=== PATIENT | female | born 1955 ===

== ENCOUNTER 2018-06-13 00:10 | Emergency (ER) | payer SELFPAY ==
[2018-06-13 00:24] VITALS: TEMP 98.7
--- NOTE | 2018-06-13 01:00 | C.PDOC ---
History Of Present Illness Patient with PMH of HTN presents to ED with complaints of HTN and headcache since this afternoon. The patient states she has been compliant with her medications and there was a recent addition of new medication hydralazine which she started taking today. Patient states she checked her blood pressure which was high 190s. Patient took a pain reliever for her headache which helped and on arrival to ED she feels better. She denies any dizziness, nausea, vomiting, numbness, weakness, chest pain or SOB. Time Seen by Provider: 06/13/18 00:46 Chief Complaint (Nursing): High Blood Pressure History Per: Patient History/Exam Limitations: no limitations Onset/Duration Of Symptoms: Hrs Current Symptoms Are (Timing): Still Present Past Medical History Reviewed: Historical Data, Nursing Documentation, Vital Signs Vital Signs: Last Vital Signs Temp 98.7 F 06/13/18 01:22 Pulse 66 06/13/18 01:22 Resp 16 06/13/18 01:22 BP 151/76 H 06/13/18 01:22 Pulse Ox 98 06/13/18 01:41 - Medical History PMH: HTN Family History: States: No Known Family Hx - Social History Hx Tobacco Use: Yes (former) Hx Alcohol Use: No Hx Substance Use: No Review Of Systems Except As Marked, All Systems Reviewed And Found Negative. Cardiovascular: Negative for: Chest Pain Respiratory: Negative for: Shortness of Breath Gastrointestinal: Negative for: Nausea, Vomiting Neurological: Positive for: Headache. Negative for: Weakness, Dizziness Physical Exam - Physical Exam Appears: Well, Non-toxic, No Acute Distress Skin: Warm, Dry, No Rash Head: Atraumatic, Normacephalic Eye(s): bilateral: Normal Inspection Oral Mucosa: Moist Neck: Normal ROM Chest: Symmetrical Cardiovascular: Rhythm Regular, No Murmur Respiratory: Normal Breath Sounds, No Rales, No Rhonchi, No Wheezing Extremity: Bilateral: Atraumatic, Normal Color And Temperature, Normal ROM Neurological/Psych: Oriented x3, Normal Speech, Normal Cranial Nerves, Other ( No focal deficits) Gait: Steady ED Course And Treatment O2 Sat by Pulse Oximetry: 98 (RA) Pulse Ox Interpretation: Normal Medical Decision Making Medical Decision Making: Impression: HTN, recent medication change Patient appears well nontoxic and in no distress. She has no neuro deficits and her BP was 162/80 which is close to her normal she states. Patient has no other complaints. No clinical signs or symptoms of TIA, CVA, SAH. She feels comfortable going home and will be discharged. Disposition Counseled Patient/Family Regarding: Diagnosis, Need For Followup - Disposition Referrals: [facility] [Outside] [facility] [Outside] Disposition: HOME/ ROUTINE Disposition Time: 00:59 Condition: STABLE Additional Instructions: Contine con stacey medicamentos habituales para la hipertensin prueba la dieta baja en sodio seguimiento en la clnica Instructions: High Blood Pressure (DC) Print Language: MALTESE - POA Present On Arrival: None - Clinical Impression Clinical Impression: Hypertension - PA / PLATINUM SMITH / Resident Statement /DO has reviewed & agrees with the documentation as recorded.
[2018-06-13 01:26] VITALS: BP 151/76; PULSE 66; RESP 16
[2018-06-13 01:41] VITALS: O2SAT 98
== END 2018-06-13 01:24 | disposition home or self-care (01) ==
LOC: C.ER 00:10
DX: I10 Essential (primary) hypertension (principal)

== ENCOUNTER 2018-11-14 11:17 | Inpatient (IN) | payer OTHER ==
[2018-11-14] MEDS ORDERED: Sodium Chloride 0.9% 1,000 ML IV STA (12:21)
--- NOTE | 2018-11-14 12:21 | C.PDOC ---
History Of Present Illness 63 years old female presents to ED for complaints of coughing blood streaks associated with nausea and generalized weakness that began 3 days ago. Patient also reports she was recently diagnosed with kidney infection and has been ta marleen Zithromax and Keflex for the past 10 days with no improvement. Patient states she came from [place] on the 11/16/18. Denies diarrhea, vomiting, dysuria, or any other complaints. Time Seen by Provider: 11/14/18 11:39 Chief Complaint (Nursing): Flu-like Symptoms History Per: Patient History/Exam Limitations: no limitations Onset/Duration Of Symptoms: Hrs Current Symptoms Are (Timing): Still Present Recent travel outside of the [place]: No Past Medical History Reviewed: Historical Data, Nursing Documentation, Vital Signs Vital Signs: Last Vital Signs Temp 99 F 11/14/18 11:30 Pulse 96 H 11/14/18 11:30 Resp 18 11/14/18 11:30 BP 139/84 11/14/18 11:30 Pulse Ox 96 11/14/18 11:30 - Medical History PMH: HTN Surgical History: No Surg Hx Family History: States: No Known Family Hx - Social History Hx Tobacco Use: Yes (former) Hx Alcohol Use: No Hx Substance Use: No - Immunization History Hx Tetanus Toxoid Vaccination: No Hx Influenza Vaccination: No Hx Pneumococcal Vaccination: No Review Of Systems Constitutional: Positive for: Weakness. Negative for: Fever, Chills Respiratory: Positive for: Cough (w/ blood streaks ) Gastrointestinal: Positive for: Nausea. Negative for: Vomiting, Abdominal Pain, Diarrhea Genitourinary: Negative for: Dysuria Skin: Negative for: Rash Neurological: Negative for: Weakness, Numbness Physical Exam - Physical Exam Appears: Well, Non-toxic, No Acute Distress Skin: Normal Color, Warm, Dry, No Rash Head: Atraumatic, Normacephalic Eye(s): bilateral: Normal Inspection, PERRL, EOMI Oral Mucosa: Moist Chest: Symmetrical, No Tenderness Cardiovascular: Rhythm Regular, No Murmur Respiratory: Normal Breath Sounds, No Rales, No Rhonchi, No Wheezing Gastrointestinal/Abdominal: Bowel Sounds (Active ), Soft, No Tenderness Extremity: Normal ROM Extremity: Bilateral: Atraumatic, Normal Color And Temperature, Normal ROM Pulses: Left Radial: Normal, Right Radial: Normal Neurological/Psych: Oriented x3, Normal Speech Gait: Steady ED Course And Treatment - Laboratory Results Result Diagrams: 11/14/18 12:40 11/14/18 12:40 O2 Sat by Pulse Oximetry: 96 (RA) Pulse Ox Interpretation: Normal - Other Rad CXR X-Ray: Viewed By Me, Read By Radiologist Interpretation: Date of service: 11/14/2018. HISTORY: productive cough with blood. COMPARISON: No prior. TECHNIQUE: Chest PA and lateral. FINDINGS: LUNGS: Patchy infiltrate is seen at the right upper lobe and possibly minimally in the right infrahilar space as well. Left lung appears clear. PLEURA: No significant pleural effusion identified. No pneumothorax apparent. CARDIOVASCUL AR: No aortic atherosclerotic calcification present. Normal cardiac size. No pulmonary vascular congestion. OSSEOUS STRUCTURES: No significant abnormalities. VISUALIZED UPPER ABDOMEN: Normal. OTHER FINDINGS: None. IMPRESSION: Patchy infiltrate affects right upper lobe and possibly right in frahilar space as well. No left sided infiltrate. No pleural effusion bilaterally. - CT Scan/US CT chest Other Rad Studies (CT/US): Read By Radiologist, Radiology Report Reviewed CT/US Interpretation: Accession No. : [id number]. Patient Name / ID : BOB LAMAR / [id number]. Exam Date : 11/14/2018 14:45:29 ( Approved ). Study Comment : Sex / Age : F / 63Y. Creator : Lencho Staton. Dictator : Dwayne Lebron MD. Boiler Plant Worker : [place] : Dwayne Lebron MD. Approver2 : Report Date : 11/14/2018 14:53:33. My Comment : . This report is currently processing and HAS NOT BEEN OFFICIALLY SIGNED BY THE PHYSICIAN - ESTIMATED TIME OF APPROVAL IS 11/14/2018 16:34. Date of service: 11/14/2018. PROCEDURE: CT Chest without contrast. HISTORY: cough, hemoptysis. COMPARISON: Chest radiographs 11/14/2018. TECHNIQUE: Contiguous axial images were obtained through the chest without intravenous contrast enhancement. Sagittal and coronal reconstructions were performed. . Radiation dose: Total exam DLP = 750.95 mGy-cm. This CT exam was performed using one or more of the following dose reduction techniques: Automated exposure control, adjustment of the mA and/or kV according to patient size, and/or use of iterative reconstruction technique. FINDINGS: LUNGS: Multifocal infiltrates with somewhat lobular sub components are identified primarily at the right upper lobe but affect the left lower lobe followed by right lower lobe and left upper lobe as well. Central airways are clear. MEDIASTINUM: Calcific atherosclerotic changes are seen related to the thoracic aorta. Normal sized heart. Limited coronary artery calcifications are identified. Main pulmonary artery is dilated to 3.6 cm which may indicate pulmonary artery hypertension. Clinically correlate. Mildly enlarged preaortic and paratracheal lymph nodes are identified with the largest lymph node identified in the precarinal space measuring 2.0 x 1.0 cm. PLEURA: No pleural fluid. No pneumothorax. BONES: No fracture. No destructive lesion. UPPER ABDOMEN: Grossly unremarkable. OTHER FINDINGS: None. IMPRESSION: 1. Multifocal bilateral pneumonia is appreciated with somewhat of a nodular underlying component with right upper and left lower lobes most affected as described above. The right middle lobe may be the only unaffected lobe. Follow-up chest CT advised following therapy to exclude underlying lesions. 2. Mild mediastinal lymphadenopathy. Progress Note: Administered IV Fluids. Ordered CXR, blood work, Urinalysis, and Flu AB swab. Case was d/w Hospitalist who accepted patient for an admission Disposition - Disposition Disposition: HOSPITALIZED Disposition Time: 14:35 Condition: FAIR - Clinical Impression Clinical Impression: Pneumonia - PA / CORN CUTTER OPERATOR / Resident Statement MD/DO has reviewed & agrees with the documentation as recorded. - Scribe Statement The provider has reviewed the documentation as recorded by the Cassidy Lima All medical record entries made by the Cinthyaibdorene were at my direction and personally dictated by me. I have reviewed the chart and agree that the record accurately reflects my personal performance of the history, physical exam, medical decision making, and the department course for this patient. I have also personally directed, reviewed, and agree with the discharge instructions and dis position. Decision To Admit - Pt Status Changed To: Hospital Disposition Of: Inpatient - Admit Certification Admit to Inpatient:: After my assessment, the patient will require hospita lization for at least two midnights. This is because of the severity of symptoms shown, intensity of services needed, and/or the medical risk in this patient being treated as an outpatient. - InPatient: Physician Admission Certification: I certify that this patient requires 2 or more midnights of care for the following reason:: will need IV antibiotics, r/o TB - . Bed Request Type: Regular Admitting Physician: Marcello Arellano Patient Diagnosis: Pneumonia
[2018-11-14] MEDS ORDERED: Sodium Chloride 0.9% 1,000 ML ONE (12:32)
[2018-11-14 12:49] LABS: SQUAMOUS EPITHIAL 3 /hpf (0-5); URINE BILIRUBIN NEGATIVE (NEGATIVE); URINE BLOOD NEGATIVE (NEGATIVE); URINE CLARITY Clear (Clear); URINE COLOR Yellow (YELLOW); URINE GLUCOSE (UA) 1+ mg/dL (Normal); URINE HYALINE CAST 0-2 /lpf (0-2); URINE LEUKOCYTE ESTERASE NEG Leu/uL (Negative); URINE PROTEIN 2+ mg/dL (NEGATIVE); URINE UROBILINOGEN NORMAL mg/dL (0.2-1.0)
[2018-11-14 12:55] LABS: BASO # 0.1 K/uL (0.0-0.2); BASO % 0.4 % (0.0-2.0); HEMOGLOBIN 12.6 g/dL (11.0-16.0); LYMPH # 0.7 K/uL (1.0-4.3); LYMPH % 5.8 % (20.0-40.0); MEAN CELL VOLUME 84.7 fL (81.0-99.0); MEAN CORPUSCULAR HEMOGLOBIN 27.8 pg (27.0-31.0); MEAN CORPUSCULAR HGB CONC 32.8 g/dL (33.0-37.0); MEAN PLATELET VOLUME 8.1 fL (7.2-11.7); MONO # 0.4 K/uL (0.0-0.8); MONO % 3.1 % (0.0-10.0); NEUT % 90.7 % (50.0-75.0); PLATELET COUNT 384 K/uL (130-400); RBC 4.53 Mil/uL (3.80-5.20); WHITE BLOOD COUNT 12.1 K/uL (4.8-10.8)
[2018-11-14 12:56] LABS: ALB/GLOB RATIO 1.2 (1.0-2.1); ALBUMIN 3.8 g/dL (3.5-5.0); CALCIUM 8.3 mg/dl (8.6-10.4)
--- NOTE | 2018-11-14 13:04 | RAD ---
Date of service: 11/14/2018 HISTORY: productive cough with blood COMPARISON: No prior. TECHNIQUE: Chest PA and lateral FINDINGS: LUNGS: Patchy infiltrate is seen at the right upper lobe and possibly minimally in the right infrahilar space as well. Left lung appears clear. PLEURA: No significant pleural effusion identified. No pneumothorax apparent. CARDIOVASCULAR: No aortic atherosclerotic calcification present. Normal cardiac size. No pulmonary vascular congestion. OSSEOUS STRUCTURES: No significant abnormalities. VISUALIZED UPPER ABDOMEN: Normal. OTHER FINDINGS: None. IMPRESSION: Patchy infiltrate affects right upper lobe and possibly right infrahilar space as well. No left sided infiltrate. No pleural effusion bilaterally.
[2018-11-14 13:13] LABS: BANDS 3 % (0-2); LYMPHOCYTE 7 % (20-40); MONOCYTE 5 % (0-10); NEUTROPHIL 85 % (50-75); TOTAL CELLS COUNTED 100
[2018-11-14 13:14] LABS: ANISOCYTOSIS SLIGHT; HYPOCHROMIC SLIGHT; PLATELET ESTIMATE NORMAL (NORMAL); POLYCHROMIC SLIGHT
[2018-11-14] MEDS ORDERED: Moxifloxacin IV 400mg/250ml NS 400 MG/250 ML BAG IV ONE (14:20)
[2018-11-14] MEDS ORDERED: Moxifloxacin IV 400mg/250ml NS 400 MG/250 ML BAG IVPB ONE (14:43)
--- NOTE | 2018-11-14 16:19 | CP.PCM.HP ---
<Shala Lei - Last Filed: 11/14/18 17:38> History of Present Illness - History of Present Illness History of Present Illness: CC: Bloody cough HPI: Patient is a 63 year old female with a PMHx significant for HTN, hypertensive kidney disease, PUD, chronic bronchitis who presents to ED with complaints of 3 days of malaise, fevers, cough with blood tinged sputum. Patient recently traveled from [place], arriving 11/11, and immediately felt ill s/p flight. Patient reports excessive sneezing, chills, fevers at home of 101. Pt reports for past 2 days she has had generalized malaise, increased weakness, and fatigue; pt reports cough that quickly progressed productive of brown, blood tinged sputum. Pt denies recent weight loss, sweats, chest pain, SOB, nausea, dysuria; pt admits to being recently treated for a "kidney infection" in [place] with 10 days of Azithromycin and Keflex which she took to completion. Pt also reports episodes of bronchitis occur every 1-2 yrs, treated with Abx. PMHx: HTN, HTN nephropathy, PUD w/ GI bleed, bronchitis, glaucoma, PSHx: appendectomy, left eye for glaucoma Allergies: NKDA Meds: Losartan 100mg BID, Amlodipine 10mg BID, Furosemide 40mg, albuterol i nhaler SocHx: 10+ pack year smoking hx, denies alcohol/drugs, works as travel registered nurse [employer] FamHx: Heart dz, [place], strokes, HTN Present on Admission - Present on Admission Any Indicators Present on Admission: No Review of Systems - Constitutional Constitutional: Chills, Fever. absent: Weight Loss - EENT Nose/Mouth/Throat: absent: Sore Throat - Cardiovascular Cardiovascular: Pedal Edema. absent: Chest Pain - Respiratory Respiratory: Cough, Hemoptysis, Chest Congestion - Gastrointestinal Gastrointestinal: absent: Abdominal Pain, Nausea - Genitourinary Genitourinary: absent: Dysuria Past Patient History - Past Social History Smoking Status: Light Smoker < 10 Cigarettes Daily - CARDIAC Hx Hypertension: Yes - PULMONARY Hx Bronchitis: Yes - HEENT Hx Glaucoma: Yes - RENAL Hx Chronic Kidney Disease: Yes - PSYCHIATRIC Hx Substance Use: No - SURGICAL HISTORY Hx Surgeries: No - ANESTHESIA Hx Anesthesia: No Hx Anesthesia Reactions: No Hx Malignant Hyperthermia: No Meds Allergies/Adverse Reactions: Allergies Allergy/AdvReac Type Severity Reaction Status Date / Time No Known Allergies Allergy Verified 06/13/18 00:18 Physical Exam - Constitutional Appears: Non-toxic, No Acute Distress - Head Exam Head Exam: ATRAUMATIC, NORMAL INSPECTION, NORMOCEPHALIC - Eye Exam Eye Exam: Conjunctival injection, EOMI Pupil Exam: NORMAL ACCOMODATION - ENT Exam ENT Exam: Mucous Membranes Moist, Normal Exam - Neck Exam Neck exam: Positive for: Normal Inspection. Negative for: Lymphadenopathy - Respiratory Exam Respiratory Exam: Rales, Rhonchi, NORMAL BREATHING PATTERN. absent: Accessory Muscle Use - Cardiovascular Exam Cardiovascular Exam: Tachycardia, REGULAR RHYTHM, +S1, +S2 - GI/Abdominal Exam GI & Abdominal Exam: Soft. absent: Tenderness - Extremities Exam Extremities exam: Positive for: pedal edema (1+ B/L). Negative for: calf tend erness - Back Exam Back exam: NORMAL INSPECTION Additional comments: no CVA tenderness - Neurological Exam Neurological exam: Alert, Oriented x3 - Psychiatric Exam Psychiatric exam: Normal Affect, Normal Mood - Skin Skin Exam: Dry, Intact, Normal Color, Warm Results - Vital Signs Recent Vital Signs: Last Vital Signs Temp 98.6 F 11/14/18 13:42 Pulse 92 H 11/14/18 15:17 Resp 20 11/14/18 15:17 BP 153/84 H 11/14/18 15:17 Pulse Ox 94 L 11/14/18 15:17 - Labs Result Diagrams: 11/14/18 12:40 11/14/18 12:40 Labs: Laboratory Results - last 24 hr 11/14/18 11/14/18 11/14/18 12:40 12:40 12:40 WBC 12.1 H RBC 4.53 Hgb 12.6 Hct 38.4 MCV 84.7 MCH 27.8 MCHC 32.8 L RDW 15.0 H Plt Count 384 MPV 8.1 Neut % (Auto) 90.7 H Lymph % (Auto) 5.8 L Haywood % (Auto) 3.1 Eos % (Auto) 0.0 Baso % (Auto) 0.4 Neut # (Auto) 11.0 H Lymph # (Auto) 0.7 L Haywood # (Auto) 0.4 Eos # (Auto) 0.0 Baso # (Auto) 0.1 Neutrophils % (Manual) 85 H Band Neutrophils % 3 H Lymphocytes % (Manual) 7 L Monocytes % (Manual) 5 Platelet Estimate Normal Polychromasia Slight Hypochromasia (manual) Slight Anisocytosis (manual) Slight Sodium 135 Potassium 3.8 Chloride 98 Carbon Dioxide 31 H Anion Gap 10 BUN 13 Creatinine 1.2 Est GFR ( Amer) 55 Est GFR (Non-Af Amer) 45 Random Glucose 123 H Calcium 8.3 L Total Bilirubin 0.5 AST 29 ALT 39 Alkaline Phosphatase 89 Total Protein 7.0 Albumin 3.8 Globulin 3.2 Albumin/Globulin Ratio 1.2 Urine Color Yellow Urine Clarity Clear Urine pH 7.0 Ur Specific [place] 1.014 Urine Protein 2+ H Urine Glucose (UA) 1+ Urine Ketones Negative Urine Blood Negative Urine Nitrate Negative Urine Bilirubin Negative Urine Urobilinogen Normal Ur Leukocyte Esterase Neg Urine WBC (Auto) 2 Urine RBC (Auto) < 1 Ur Squamous Epith Cells 3 Hyaline Casts 0-2 Influenza Typ A,B (EIA) 11/14/18 12:40 WBC RBC Hgb Hct MCV MCH MCHC RDW Plt Count MPV Neut % (Auto) Lymph % (Auto) Haywood % (Auto) Eos % (Auto) Baso % (Auto) Neut # (Auto) Lymph # (Auto) [place]wood # (Auto) Eos # (Auto) Baso # (Auto) Neutrophils % (Manual) Band Neutrophils % Lymphocytes % (Manual) Monocytes % (Manual) Platelet Estimate Polychromasia Hypochromasia (manual) Anisocytosis (manual) Sodium Potassium Chloride Carbon Dioxide Anion Gap BUN Creatinine Est GFR ( Amer) Est GFR (Non-Af Amer) Random Glucose Calcium Total Bilirubin AST ALT Alkaline Phosphatase Total Protein Albumin Globulin Albumin/Globulin Ratio Urine Color Urine Clarity Urine pH Ur Specific [place] Urine Protein Urine Glucose (UA) Urine Ketones Urine Blood Urine Nitrate Urine Bilirubin Urine Urobilinogen Ur Leukocyte Esterase Urine WBC (Auto) Urine RBC (Auto) Ur Squamous Epith Cells Hyaline Casts Influenza Typ A,B (EIA) Negative for flu a/b Assessment & Plan - Assessment and Plan (Free Text) Assessment: 63 year old female with pmhx of HTN, hypertensive nephropathy, PUD, bronchitis admitted for evaluation and treatment of suspected PNA vs PE vs TB infection Plan: Sepsis; PNA, CAP -tachycardia at 96 on admission, leukocytosis of 12.1 -CXR, chest CT: multifocal B/L PNA -f/u ABG(lactate), procalcitonin -f/u mycoplasma, legionella, strep pneumo Ag -IV Abx-Avelox 400mg(11/14) -isolation precautions TB -f/u quant gold, PPD, HIV -f/u sputum AFB cxs x3, blood and urine cxs -Acetaminophen 650mg prn-fevers -NS @ 60/hr r/o PE recent travel, obese, smoking, HTN, -f/u D-dimer; CTA if elevated -EKG -LE duplex, r/o DVT; LE edema Cough -robitussin q4 prn -sputum cx HTN/HTN nephropathy -BP medication, cozaar, furosemide, norvasc; monitor and adjust accordingly -HHD Obesity -lipid panel, A1c, TSH Nicotine use -nicoderm patch -education on smoking cessation PUD -NSAIDS not recommended -protonix 40mg qd Ppx -SCD contraindicated until duplex negative -lovenox 40mg -protonix 40mg -bacid Discussed with Dr. Colon -Shala Lei, PGY-1 <Priscila Colon V - Last Filed: 11/15/18 15:30> Results - Vital Signs Recent Vital Signs: Last Vital Signs Temp 98.6 F 11/15/18 14:30 Pulse 86 11/15/18 14:30 Resp 20 11/15/18 08:26 BP 146/87 11/15/18 09:26 Pulse Ox 96 11/15/18 14:30 - Labs Result Diagrams: 11/15/18 06:41 11/15/18 06:41 Labs: Laboratory Results - last 24 hr 11/14/18 11/14/18 11/14/18 07:17 16:31 17:12 WBC RBC Hgb Hct MCV MCH MCHC RDW Plt Count MPV Neut % (Auto) Lymph % (Auto) [place] % (Auto) Eos % (Auto) Baso % (Auto) Neut # (Auto) Lymph # (Auto) [place] # (Auto) Eos # (Auto) Baso # (Auto) PT INR APTT D-Dimer, Quantitative Puncture Site Rba pCO2 39 pO2 49 L HCO3 28.2 H ABG pH 7.47 H ABG Total CO2 29.6 H ABG O2 Saturation 91.1 L ABG Base Excess 4.5 H Shaka Test Pos ABG Potassium 3.1 L A-a O2 Difference 52.0 Respiratory Index 1.1 Sodium 137.0 Chloride 105.0 Glucose 96 Lactate 0.5 L Liter Flow 0 FiO2 21.0 Potassium Carbon Dioxide Anion Gap BUN Creatinine Est GFR ( Amer) Est GFR (Non-Af Amer) POC Glucose (mg/dL) Random Glucose Hemoglobin A1c Calcium Total Bilirubin AST ALT Alkaline Phosphatase Total Protein Albumin Globulin Albumin/Globulin Ratio Triglycerides Cholesterol LDL Cholesterol Direct HDL Cholesterol Procalcitonin TSH 3rd Generation Arterial Blood Potassium 3.1 L HIV 1&2 Antibody Screen H.influenzae Type B Ag Not required Ur L.pneumophila Ag Negative Mycoplasma pneumon IgM N.meningitidis [id number] Not required N.meningi B/E.coli K1 Ag Not required Group B Strep Antigen Not required S. pneumoniae Antigen Negative 11/14/18 11/14/18 11/14/18 17:22 19:25 19:25 WBC RBC Hgb Hct MCV MCH MCHC RDW Plt Count MPV Neut % (Auto) Lymph % (Auto) [place] % (Auto) Eos % (Auto) Baso % (Auto) Neut # (Auto) Lymph # (Auto) [place] # (Auto) Eos # (Auto) Baso # (Auto) PT INR APTT D-Dimer, Quantitative 363 H Puncture Site pCO2 pO2 HCO3 ABG pH ABG Total CO2 ABG O2 Saturation ABG Base Excess Shaka Test ABG Potassium A-a O2 Difference Respiratory Index Sodium Chloride Glucose Lactate Liter Flow FiO2 Potassium Carbon Dioxide Anion Gap BUN Creatinine Est GFR ( Amer) Est GFR (Non-Af Amer) POC Glucose (mg/dL) 101 Random Glucose Hemoglobin A1c Calcium Total Bilirubin AST ALT Alkaline Phosphatase Total Protein Albumin Globulin Albumin/Globulin Ratio Triglycerides Cholesterol LDL Cholesterol Direct HDL Cholesterol Procalcitonin TSH 3rd Generation Arterial Blood Potassium HIV 1&2 Antibody Screen H.influenzae Type B Ag Ur L.pneumophila Ag Mycoplasma pneumon IgM Negative N.meningitidis ACY/W135 N.meningi B/E.coli K1 Ag Group B Strep Antigen S. pneumoniae Antigen 11/14/18 11/14/18 11/14/18 19:25 19:25 19:25 WBC RBC Hgb Hct MCV MCH MCHC RDW Plt Count MPV Neut % (Auto) Lymph % (Auto) [place]wood % (Auto) Eos % (Auto) Baso % (Auto) Neut # (Auto) Lymph # (Auto) [place] # (Auto) Eos # (Auto) Baso # (Auto) PT INR APTT D-Dimer, Quantitative Puncture Site pCO2 pO2 HCO3 ABG pH ABG Total CO2 ABG O2 Saturation ABG Base Excess Shaka Test ABG Potassium A-a O2 Difference Respiratory Index Sodium Chloride Glucose Lactate Liter Flow FiO2 Potassium Carbon Dioxide Anion Gap BUN Creatinine Est GFR ( Amer) Est GFR (Non-Af Amer) POC Glucose (mg/dL) Random Glucose Hemoglobin A1c 6.0 Calcium Total Bilirubin AST ALT Alkaline Phosphatase Total Protein Albumin Globulin Albumin/Globulin Ratio Triglycerides 58 Cholesterol 172 LDL Cholesterol Direct 98 HDL Cholesterol 52 Procalcitonin 0.30 TSH 3rd Generation 0.40 L Arterial Blood Potassium HIV 1&2 Antibody Screen H.influenzae Type B Ag Ur L.pneumophila Ag Mycoplasma pneumon IgM N.meningitidis [id number] N.meningi B/E.coli K1 Ag Group B Strep Antigen S. pneumoniae Antigen 11/14/18 11/14/18 11/15/18 19:25 21:12 06:41 WBC 9.2 RBC 4.30 Hgb 11.8 Hct 36.4 MCV 84.7 MCH 27.4 MCHC 32.4 L RDW 15.0 H Plt Count 363 MPV 8.5 Neut % (Auto) 85.3 H Lymph % (Auto) 10.5 L [place] % (Auto) 3.5 Eos % (Auto) 0.2 Baso % (Auto) 0.5 Neut # (Auto) 7.9 H Lymph # (Auto) 1.0 [place]wood # (Auto) 0.3 Eos # (Auto) 0.0 Baso # (Auto) 0.0 PT INR APTT D-Dimer, Quantitative Puncture Site pCO2 pO2 HCO3 ABG pH ABG Total CO2 ABG O2 Saturation ABG Base Excess Shaka Test ABG Potassium A-a O2 Difference Respiratory Index Sodium Chloride Glucose Lactate Liter Flow FiO2 Potassium Carbon Dioxide Anion Gap BUN Creatinine Est GFR ( Amer) Est GFR (Non-Af Amer) POC Glucose (mg/dL) 110 Random Glucose Hemoglobin A1c Calcium Total Bilirubin AST ALT Alkaline Phosphatase Total Protein Albumin Globulin Albumin/Globulin Ratio Triglycerides Cholesterol LDL Cholesterol Direct HDL Cholesterol Procalcitonin TSH 3rd Generation Arterial Blood Potassium HIV 1&2 Antibody Screen Negative H.influenzae Type B Ag Ur L.pneumophila Ag Mycoplasma pneumon IgM N.meningitidis [id number] N.meningi B/E.coli K1 Ag Group B Strep Antigen S. pneumoniae Antigen 11/15/18 11/15/18 06:41 06:41 WBC RBC Hgb Hct MCV MCH MCHC RDW Plt Count MPV Neut % (Auto) Lymph % (Auto) [place] % (Auto) Eos % (Auto) Baso % (Auto) Neut # (Auto) Lymph # (Auto) [place] # (Auto) Eos # (Auto) Baso # (Auto) PT 14.6 H INR 1.3 APTT 32 D-Dimer, Quantitative Puncture Site pCO2 pO2 HCO3 ABG pH ABG Total CO2 ABG O2 Saturation ABG Base Excess Shaka Test ABG Potassium A-a O2 Difference Respiratory Index Sodium 135 Chloride 99 Glucose Lactate Liter Flow FiO2 Potassium 4.6 Carbon Dioxide 29 Anion Gap 12 BUN 15 Creatinine 1.2 Est GFR ( Amer) 55 Est GFR (Non-Af Amer) 45 POC Glucose (mg/dL) Random Glucose 100 Hemoglobin A1c Calcium 7.8 L Total Bilirubin 0.8 AST 40 H D ALT 35 Alkaline Phosphatase 69 Total Protein 6.9 Albumin 3.6 Globulin 3.2 Albumin/Globulin Ratio 1.1 Triglycerides Cholesterol LDL Cholesterol Direct HDL Cholesterol Procalcitonin TSH 3rd Generation Arterial Blood Potassium HIV 1&2 Antibody Screen H.influenzae Type B Ag Ur L.pneumophila Ag Mycoplasma pneumon IgM N.meningitidis [id number] N.meningi B/E.coli K1 Ag Group B Strep Antigen S. pneumoniae Antigen Attending/Attestation - Attestation I have personally seen and examined this patient.: Yes I have fully participated in the care of the patient.: Yes I have reviewed all pertinent clinical information: Yes Notes (Text): This is a late computer entry for November 14, 2018. Patient seen, examined, case discussed with medical administrator. Patient recently traveled from [place] last and started to feel associated cough with blood-tinged sputum and congestion. Patient was recently treated in [place] for what sounds like both an upper to upper respiratory infection as well as a urinary tract infection as she has completed about 10 days worth of Keflex and azithromycin per history. Patient is also a current smoker 1 pack will last her 3 days for at least 20+ years. Patient denies any sick contacts. Patient denies any history of immunosuppression. Patient reports about 2 times a year she gets an episode of bronchitis. Patient has not had any recent hospitalizations for the past 3 months. Patient reports a history of peptic ulcer disease bleeding about 5 years ago. Patient does come in with both white count, tachycardia, and bandemia. We have placed for lactic acid if the lactic acid is above 2 we will call code sepsis if not patient will be treated for suspicion for sepsis. Patient denies any symptoms consistent with urinary tract infection denies frequency, hematuria, and there is no CVA CVA tenderness on exam. Patient was initially ordered by the emergency room CT chest however it was not a CT angios. Within the CT chest itself shows multifocal bilateral pneumonia appreciated somewhat in the upper right upper and lower left lower lobes. As well as mild mediastinal lymphadenopathy. Also to note patient does have mildly dilated pulmonary artery for possible underlying pulmonary artery hypertension. Patient in the ED did receive 1 dose of Avelox. We will give her some gentle IV hydration. In the ED she was already collected for blood cultures and urine culture but will follow it up. We also placed on a probiotic and supportive care for patient's cough. Given patient is also history of recent flight, smoking, and coughing up blood we will rule her out for tuberculosis as well as possible pulmonary embolism. If d-dimer is positive we will proceed with a CT angios to rule out PE. We will order for AFB sputum's x3 daily to be collected QuantiFERON as well as a PPD PPD to be placed. As well as obtain pulmonary consult. Patient with a known history of hypertension and hypertensive kidney disease. Patient noted to be polypharmacy given her medications patient reports she takes Norvasc 10 mg twice a day, takes losartan 100 mg p.o. twice a day, and Lasix 40 once a day. We will start her with the maximum doses of Norvasc and Cozaar which is 10 mg once a day and 100 mg once a day respectively. And see if we will need to add additional antihypertensive agents or not. Admitting orders discussed with resident at time of admission. Patient's primary diagnosis is sepsis secondary to pneumonia. We will need to consider both tuberculosis and rule out for pulmonary embolism.
--- NOTE | 2018-11-14 16:33 | CT ---
Date of service: 11/14/2018 PROCEDURE: CT Chest without contrast HISTORY: cough, hemoptysis COMPARISON: Chest radiographs 11/14/2018. TECHNIQUE: Contiguous axial images were obtained through the chest without intravenous contrast enhancement. Sagittal and coronal reconstructions were performed. Radiation dose: Total exam DLP = 750.95 mGy-cm. This CT exam was performed using one or more of the following dose reduction techniques: Automated exposure control, adjustment of the mA and/or kV according to patient size, and/or use of iterative reconstruction technique. FINDINGS: LUNGS: Multifocal infiltrates with somewhat lobular sub components are identified primarily at the right upper lobe but affect the left lower lobe followed by right lower lobe and left upper lobe as well. Central airways are clear. MEDIASTINUM: Calcific atherosclerotic changes are seen related to the thoracic aorta. Normal sized heart. Limited coronary artery calcifications are identified. Main pulmonary artery is dilated to 3.6 cm which may indicate pulmonary artery hypertension. Clinically correlate. Mildly enlarged preaortic and paratracheal lymph nodes are identified with the largest lymph node identified in the precarinal space measuring 2.0 x 1.0 cm. PLEURA: No pleural fluid. No pneumothorax. BONES: No fracture. No destructive lesion. UPPER ABDOMEN: Grossly unremarkable. OTHER FINDINGS: None. IMPRESSION: 1. Multifocal bilateral pneumonia is appreciated with somewhat of a nodular underlying component with right upper and left lower lobes most affected as described above. The right middle lobe may be the only unaffected lobe. Follow-up chest CT advised following therapy to exclude underlying lesions. 2. Mild mediastinal lymphadenopathy.
[2018-11-14] MEDS ORDERED: Tuberculin 5 Units/0.1 ml Inj ID ONE (17:00)
[2018-11-14] MEDS ORDERED: Sodium Chloride 0.9% 1,000 ML IV SCH (17:00)
[2018-11-14 17:15] LABS: ABG ALLEN TEST POS; ARTERIAL BLOOD GAS HCO3 28.2 mmol/L (21-28); ARTERIAL BLOOD GAS O2 SAT 91.1 % (95-98); ARTERIAL BLOOD GAS PCO2 39 mm/Hg (35-45); ARTERIAL BLOOD GAS PH 7.47 (7.35-7.45); ARTERIAL BLOOD GAS PO2 49 mm/Hg (80-100); ARTERIAL BLOOD GAS TCO2 29.6 mmol/L (22-28)
[2018-11-14] MEDS: Lactobacillus Acidophilus 500 MU Cap PO SCH (18:44)
[2018-11-14] MEDS: Pantoprazole 40 mg EC Tab PO SCH (18:44)
[2018-11-14] MEDS: Enoxaparin 40 mg Syringe SC SCH (18:44)
[2018-11-14] MEDS ORDERED: Iodixanol 320 MG/ML 100 ML BOTTLE IV ONE (20:13)
[2018-11-15] MEDS: Albuterol-Ipratrop 3 mg / 0.5 (3 ml) UD INH PRN ×2 (00:09→20:25)
[2018-11-15] MEDS: guaiFENesin DM 200 mg-20 mg/10 ml UD PO PRN (00:12)
[2018-11-15 07:20] LABS: BASO % 0.5 % (0.0-2.0); EOS % 0.2 % (0.0-4.0); HEMOGLOBIN 11.8 g/dL (11.0-16.0); LYMPH % 10.5 % (20.0-40.0); MEAN CELL VOLUME 84.7 fL (81.0-99.0); MEAN CORPUSCULAR HEMOGLOBIN 27.4 pg (27.0-31.0); MEAN CORPUSCULAR HGB CONC 32.4 g/dL (33.0-37.0); MEAN PLATELET VOLUME 8.5 fL (7.2-11.7); MONO # 0.3 K/uL (0.0-0.8); MONO % 3.5 % (0.0-10.0); NEUT # 7.9 K/uL (1.8-7.0); NEUT % 85.3 % (50.0-75.0); RBC 4.3 Mil/uL (3.80-5.20); WHITE BLOOD COUNT 9.2 K/uL (4.8-10.8)
[2018-11-15 08:09] LABS: ALB/GLOB RATIO 1.1 (1.0-2.1); ALBUMIN 3.6 g/dL (3.5-5.0); CALCIUM 7.8 mg/dl (8.6-10.4)
[2018-11-15 08:32] LABS: INR 1.3; PROTHROMBIN TIME 14.6 SECONDS (9.7-12.2)
[2018-11-15] MEDS: Moxifloxacin IV 400mg/250ml NS 400 MG/250 ML BAG IVPB SCH (09:25)
[2018-11-15] MEDS: Pantoprazole 40 mg EC Tab PO SCH (09:26)
[2018-11-15] MEDS: Enoxaparin 40 mg Syringe SC SCH (09:26)
[2018-11-15] MEDS: Lactobacillus Acidophilus 500 MU Cap PO SCH ×2 (09:26→18:00)
--- NOTE | 2018-11-15 10:06 | CP.PCM.PN ---
Subjective - Date & Time of Evaluation Date of Evaluation: 11/15/18 Time of Evaluation: 07:45 - Subjective Subjective: PGY-1 Medicine Progress Note for Dr. Jorden Mishra Patient was seen and examined sitting up at bedside today in no acute distress. Nurse reports no overnight events. Patient is still feeling feverish, having night sweats that wet her back. She overall feels better and is tolerating diet. Denies chest pain, shortness of breath, abdominal pain, n/v/c/d. Objective - Vital Signs/Intake and Output Vital Signs (last 24 hours): Temp Pulse Resp BP Pulse Ox 101.4 F H 99 H 20 146/87 94 L 11/15/18 09:27 11/15/18 08:26 11/15/18 08:26 11/15/18 09:26 11/15/18 08:26 Intake and Output: 11/15/18 11/15/18 06:59 18:59 Intake Total 350 Balance 350 - Medications Medications: Current Medications Acetaminophen (Tylenol 325mg Tab) 650 mg PO Q6 PRN PRN Reason: Fever >100.4 F Last Admin: 11/15/18 09:27 Dose: 650 mg Albuterol/Ipratropium (Duoneb 3 Mg/0.5 Mg (3 Ml) Ud) 3 ml INH RQ4 PRN PRN Reason: Shortness of Breath Last Admin: 11/15/18 00:09 Dose: 3 ml Amlodipine Besylate (Norvasc) 10 mg PO DAILY [facility] Last Admin: 11/15/18 09:26 Dose: 10 mg Enoxaparin Sodium (Lovenox) 40 mg SC DAILY [facility] Last Admin: 11/15/18 09:26 Dose: 40 mg Furosemide (Lasix) 40 mg PO DAILY [facility] Last Admin: 11/15/18 09:26 Dose: 40 mg Guaifenesin/Dextromethorphan (Robitussin Dm) 10 ml PO Q4H PRN PRN Reason: Cough and congestion Last Admin: 11/15/18 00:12 Dose: 10 ml Moxifloxacin HCl (Avelox Iv 400mg/250ml Ns) 400 mg in 250 mls @ 100 mls/hr IVPB Q24H [facility]; Protocol Last Admin: 11/15/18 09:25 Dose: 100 mls/hr Influenza Virus Vaccine (Fluzone Quad [id number]) 60 mcg IM .ONCE ONE Stop: 11/17/18 10:01 Lactobacillus Acidophilus (Bacid Acidophilus) 1 cap PO BID [facility] Last Admin: 11/15/18 09:26 Dose: 1 cap Losartan Potassium (Cozaar) 100 mg PO HS [facility] Last Admin: 11/14/18 21:58 Dose: 100 mg Nicotine (Nicoderm Cq) 1 patch TD DAILY [facility] Last Admin: 11/15/18 09:26 Dose: 1 patch Pantoprazole Sodium (Protonix Ec Tab) 40 mg PO DAILY [facility] Last Admin: 11/15/18 09:26 Dose: 40 mg - Labs Labs: 11/15/18 06:41 11/15/18 06:41 PT 14.6 SECONDS (9.7-12.2) H 11/15/18 06:41 INR 1.3 11/15/18 06:41 APTT 32 SECONDS (21-34) 11/15/18 06:41 - Constitutional Appears: Well, No Acute Distress - Head Exam Head Exam: ATRAUMATIC, NORMOCEPHALIC - Eye Exam Eye Exam: EOMI, Normal appearance - ENT Exam ENT Exam: Mucous Membranes Moist - Respiratory Exam Respiratory Exam: Clear to Ausculation Bilateral, NORMAL BREATHING PATTERN. absent: Rales, Rhonchi, Wheezes Additional comments: O2 via NC - Cardiovascular Exam Cardiovascular Exam: Tachycardia, +S1, +S2 - GI/Abdominal Exam GI & Abdominal Exam: Soft, Normal Bowel Sounds. absent: Distended, Firm, Guard ing, Tenderness - Extremities Exam Extremities Exam: Normal Capillary Refill. absent: Calf Tenderness - Neurological Exam Neurological Exam: Alert, Awake, Oriented x3 - Psychiatric Exam Psychiatric exam: Normal Affect, Normal Mood - Skin Skin Exam: Normal Color, Warm Assessment and Plan - Assessment and Plan (Free Text) Assessment: 63yoF PMH HTN, hypertensive nephropathy, PUD, bronchitis admitted for evaluation and treatment of suspected PNA vs TB infection Plan: Community Acquired Pneumonia - tachycardia at 96 on admission, leukocytosis of 12.1 - CXR, chest CT: multifocal B/L PNA - ABG: lactate 0.5, Procalcitonin 0.30 -> Sepsis unlikely - HIV and Influenza neg - f/u mycoplasma, legionella, strep pneumo Ag - isolation precautions TB - f/u quant gold, PPD (placed 11/14) - f/u sputum AFB cxs x3, sputum and blood and urine cxs (aided by Mucomyst and Duoneb) - Avelox 400mg IVPB daily (started 11/14) - Acetaminophen 650mg po q6 prn for fevers - Robitussin DM po q4 prn for cough r/o PE recent travel, obese, smoking, HTN, - d-dimer 363 - CTA (11/14): no evidence of PE - f/u LE duplex, r/o DVT; LE edema Hypertension with Nephropathy - Amlodipine 10mg po daily - Furosemide 40mg po daily - Losartan 100mg po HS - monitor vitals Obesity - Lipid Panel: TG 58 Chol 172 LDL 98 HDL 52 - Hgb A1c 6.0 - TSH 0.40 Nicotine use - Nicotine 14mg/day patch 1 patch TD daily - educated on smoking cessation PUD - NSAIDS not recommended - Protonix 40mg po qd Weight loss - will inquire when last preventive measures were taken: mammogram, PAP smear, colonoscopy PPx - DVT: Lovenox 40mg sc daily, holding SCDs until Doppler studies read - GI: Protonix 40mg po daily, Bacid - Diet: HHD d/w Dr. Jorden Burroughs PGY-1
--- NOTE | 2018-11-15 10:19 | CT ---
Date of service: 11/14/2018 PROCEDURE: CT Chest with contrast (Pulmonary Angiogram) HISTORY: r/o PE COMPARISON: 11/14/2018. CT thorax. TECHNIQUE: Axial computed tomography images were obtained of the chest in the pulmonary arterial phase of enhancement. Coronal and sagittal reformatted images were created and reviewed. Intravenous contrast dose: 100 cc Visipaque 320. Mean Hounsfield value in the main pulmonary artery: 158.61 Radiation dose: Total exam DLP = 635.32 mGy-cm. This CT exam was performed using one or more of the following dose reduction techniques: Automated exposure control, adjustment of the mA and/or kV according to patient size, and/or use of iterative reconstruction technique. FINDINGS: PULMONARY ARTERIES: Dilated main pulmonary artery consistent with pulmonary arterial hypertension. No pulmonary embolism. AORTA: No acute findings. No thoracic aortic aneurysm. No atherosclerotic calcification or mural plaque present. LUNGS: Multifocal infiltrates bilaterally similar to that seen previously. Suggestion of pulmonary nodules. Masslike confluence in the left lower lobe. PLEURAL SPACES: Unremarkable. No effusion or pneumothorax. HEART: Unremarkable. No cardiomegaly. No significant pericardial effusion. LYMPH NODES: Mediastinal and right hilar adenopathy similar to that seen previously. Based on findings it is difficult to determine whether this is infectious/inflammatory reactive lymphadenopathy or related to neoplasm. BONES, CHEST WALL: Unremarkable. No fracture or destructive lesion OTHER FINDINGS: Unremarkable. IMPRESSION: No large/central pulmonary emboli. Limitations of the current examination: Qualitative and quantitative assessment of opacification of the pulmonary arteries precludes assessment beyond the segmental branch vessels. Multifocal infiltrates bilaterally and adenopathy as described above. Follow-up of infiltrates recommended to resolution. Concordant results (preliminary interpretation) provided by [employer]. Procedure Completed: 20:43. Preliminary Report: Dictated and Authenticated: 21:27. Final Interpretation: 10:15. November 15, 2018
[2018-11-15 12:27] LABS: N MENINGITIS ACY/W135 NOT REQUIRED (NEGATIVE); N MENINGITIS B/ECOLI K1 NOT REQUIRED (NEGATIVE); STREP PNEUMONIAE NEGATIVE (NEGATIVE); STREPTOCOCCUS B NOT REQUIRED (NEGATIVE)
--- NOTE | 2018-11-15 15:09 | CP.PCM.CON ---
History of Present Illness - History of Present Illness History of Present Illness: Reason for consultation: right upper pneumonia HPI: Patient is 63 year old female with PMHx of HTN, hypertensive kidney disease, PUD, and chronic bronchitis who presents to the ED with malaise, fevers, and cough with blood tinged sputum for the past 3 days. Patient recently traveled from [place] and arrived on 11/11. He fell ill after his flight. Reports fevers of 101F at home. Denies recent weight loss, diaphoresis, chest pain, SOB, nausea, dysuria. Was treated for a "kidney infection" in [place] with 10 days of Azithromycin and Keflex. Hx of episodes of bronchitis occur every 1-2 yrs, treated with ABX. PMHx: HTN, HTN nephropathy, PUD w/ GI bleed, bronchitis, glaucoma PSHx:appendectomy, left eye glaucoma Allergies: NKDA Meds: Losartan, Amlodipine, Furosemide, Albuterol SocHx: 10+ pack/year smoking hx, denies alcohol/drugs, works as world travel counselor Famhx: heart disease, strokes, HTN PE: Patient seen and examined at bedside. Resting comfortably with no acute distress. Patient is still feeling feverish, having night sweats that wet her back. Feels better overall. Denies CP, SOB, abd pain, N/V/C/D. Chest CT 11/14 14:29: Multifocdl bilateral pneumonia is appreciated with somewhat of a nodular underlying component with right upper and left lower lobes most affected as described above. The right middle lobe may be the only unaffected lobe. Follow-up chest CT advised following therapy to exclude underlying lesions. Mild mediastinal lymphadenopathy. Chest CT 11/14 19:42: No large/central pulmonary emboli. Limitations of the current examination: qualitative and quantitative assessment of opacification of the pulmonary arteries precludes assessment beyond the segmental branch vessels. Multifocal infiltrates bilaterally and adenopathy. Review of Systems - Review of Systems All systems: reviewed and no additional remarkable complaints except (productive cough and fever) Past Patient History - Past Medical History & Family History Past Medical History?: Yes - Past Social History Smoking Status: Current Some Days Smoker - CARDIAC Hx Hypertension: Yes - PULMONARY Hx Bronchitis: Yes - HEENT Hx Glaucoma: Yes (LEFT EYE) - RENAL Hx Chronic Kidney Disease: Yes - MUSCULOSKELETAL/RHEUMATOLOGICAL Hx Falls: No Hx Unsteady Gait: No - GASTROINTESTINAL Hx Gastrointestinal Disorders: No - GENITOURINARY/GYNECOLOGICAL Hx Genitourinary Disorders: No - PSYCHIATRIC Hx Psychophysiologic Disorder: No Hx Substance Use: No - SURGICAL HISTORY Hx Surgeries: No - ANESTHESIA Hx Anesthesia: Yes Hx Anesthesia Reactions: No Hx Malignant Hyperthermia: No Has any member of the family had a problem w/ anesthesia?: No Meds Allergies/Adverse Reactions: Allergies Allergy/AdvReac Type Severity Reaction Status Date / Time No Known Allergies Allergy Verified 06/13/18 00:18 - Medications Medications: Current Medications Acetaminophen (Tylenol 325mg Tab) 650 mg PO Q6 PRN PRN Reason: Fever >100.4 F Last Admin: 11/15/18 09:27 Dose: 650 mg Albuterol/Ipratropium (Duoneb 3 Mg/0.5 Mg (3 Ml) Ud) 3 ml INH RQ4 PRN PRN Reason: Shortness of Breath Last Admin: 11/15/18 00:09 Dose: 3 ml Amlodipine Besylate (Norvasc) 10 mg PO DAILY [facility] Last Admin: 11/15/18 09:26 Dose: 10 mg Enoxaparin Sodium (Lovenox) 40 mg SC DAILY [facility]IN Last Admin: 11/15/18 09:26 Dose: 40 mg Furosemide (Lasix) 40 mg PO DAILY [facility] Last Admin: 11/15/18 09:26 Dose: 40 mg Guaifenesin/Dextromethorphan (Robitussin Dm) 10 ml PO Q4H PRN PRN Reason: Cough and congestion Last Admin: 11/15/18 00:12 Dose: 10 ml Moxifloxacin HCl (Avelox Iv 400mg/250ml Ns) 400 mg in 250 mls @ 100 mls/hr IVPB Q24H VIN; Protocol Last Admin: 11/15/18 09:25 Dose: 100 mls/hr Influenza Virus Vaccine (Fluzone Quad [id number]) 60 mcg IM .ONCE ONE Stop: 11/17/18 10:01 Lactobacillus Acidophilus (Bacid Acidophilus) 1 cap PO BID IVN Last Admin: 11/15/18 09:26 Dose: 1 cap Losartan Potassium (Cozaar) 100 mg PO HS VIN Last Admin: 11/14/18 21:58 Dose: 100 mg Nicotine (Nicoderm Cq) 1 patch TD DAILY [facility] Last Admin: 11/15/18 09:26 Dose: 1 patch Pantoprazole Sodium (Protonix Ec Tab) 40 mg PO DAILY [facility] Last Admin: 11/15/18 09:26 Dose: 40 mg Physical Exam - Head Exam Head Exam: ATRAUMATIC, NORMOCEPHALIC - ENT Exam ENT Exam: Mucous Membranes Moist - Respiratory Exam Respiratory Exam: Clear to Auscultation Bilateral - Cardiovascular Exam Cardiovascular Exam: REGULAR RHYTHM - GI/Abdominal Exam GI & Abdominal Exam: Normal Bowel Sounds - Extremities Exam Extremities exam: Positive for: normal inspection Results - Vital Signs Recent Vital Signs: Last Vital Signs Temp 101.4 F H 11/15/18 09:27 Pulse 94 H 11/15/18 12:15 Resp 20 11/15/18 08:26 BP 146/87 11/15/18 09:26 Pulse Ox 99 11/15/18 12:15 - Labs Result Diagrams: 11/15/18 06:41 11/15/18 06:41 Labs: Laboratory Results - last 24 hr 11/14/18 11/14/18 11/14/18 07:17 16:31 17:12 WBC RBC Hgb Hct MCV MCH MCHC RDW Plt Count MPV Neut % (Auto) Lymph % (Auto) Baxter % (Auto) Eos % (Auto) Baso % (Auto) Neut # (Auto) Lymph # (Auto) Baxter # (Auto) Eos # (Auto) Baso # (Auto) PT INR APTT D-Dimer, Quantitative Puncture Site Rba pCO2 39 pO2 49 L HCO3 28.2 H ABG pH 7.47 H ABG Total CO2 29.6 H ABG O2 Saturation 91.1 L ABG Base Excess 4.5 H Shaka Test Pos ABG Potassium 3.1 L A-a O2 Difference 52.0 Respiratory Index 1.1 Sodium 137.0 Chloride 105.0 Glucose 96 Lactate 0.5 L Liter Flow 0 FiO2 21.0 Potassium Carbon Dioxide Anion Gap BUN Creatinine Est GFR ( Amer) Est GFR (Non-Af Amer) POC Glucose (mg/dL) Random Glucose Hemoglobin A1c Calcium Total Bilirubin AST ALT Alkaline Phosphatase Total Protein Albumin Globulin Albumin/Globulin Ratio Triglycerides Cholesterol LDL Cholesterol Direct HDL Cholesterol Procalcitonin TSH 3rd Generation Arterial Blood Potassium 3.1 L HIV 1&2 Antibody Screen H.influenzae Type B Ag Not required Ur L.pneumophila Ag Negative Mycoplasma pneumon IgM N.meningitidis [id number]/[id number] Not required N.meningi B/E.coli K1 Ag Not required Group B Strep Antigen Not required S. pneumoniae Antigen Negative 11/14/18 11/14/18 11/14/18 17:22 19:25 19:25 WBC RBC Hgb Hct MCV MCH MCHC RDW Plt Count MPV Neut % (Auto) Lymph % (Auto) Baxter % (Auto) Eos % (Auto) Baso % (Auto) Neut # (Auto) Lymph # (Auto) Baxter # (Auto) Eos # (Auto) Baso # (Auto) PT INR APTT D-Dimer, Quantitative 363 H Puncture Site pCO2 pO2 HCO3 ABG pH ABG Total CO2 ABG O2 Saturation ABG Base Excess Shaka Test ABG Potassium A-a O2 Difference Respiratory Index Sodium Chloride Glucose Lactate Liter Flow FiO2 Potassium Carbon Dioxide Anion Gap BUN Creatinine Est GFR ( Amer) Est GFR (Non-Af Amer) POC Glucose (mg/dL) 101 Random Glucose Hemoglobin A1c Calcium Total Bilirubin AST ALT Alkaline Phosphatase Total Protein Albumin Globulin Albumin/Globulin Ratio Triglycerides Cholesterol LDL Cholesterol Direct HDL Cholesterol Procalcitonin TSH 3rd Generation Arterial Blood Potassium HIV 1&2 Antibody Screen H.influenzae Type B Ag Ur L.pneumophila Ag Mycoplasma pneumon IgM Negative N.meningitidis ACY/W135 N.meningi B/E.coli K1 Ag Group B Strep Antigen S. pneumoniae Antigen 11/14/18 11/14/18 11/14/18 19:25 19:25 19:25 WBC RBC Hgb Hct MCV MCH MCHC RDW Plt Count MPV Neut % (Auto) Lymph % (Auto) Baxter % (Auto) Eos % (Auto) Baso % (Auto) Neut # (Auto) Lymph # (Auto) Baxter # (Auto) Eos # (Auto) Baso # (Auto) PT INR APTT D-Dimer, Quantitative Puncture Site pCO2 pO2 HCO3 ABG pH ABG Total CO2 ABG O2 Saturation ABG Base Excess Shaka Test ABG Potassium A-a O2 Difference Respiratory Index Sodium Chloride Glucose Lactate Liter Flow FiO2 Potassium Carbon Dioxide Anion Gap BUN Creatinine Est GFR ( Amer) Est GFR (Non-Af Amer) POC Glucose (mg/dL) Random Glucose Hemoglobin A1c 6.0 Calcium Total Bilirubin AST ALT Alkaline Phosphatase Total Protein Albumin Globulin Albumin/Globulin Ratio Triglycerides 58 Cholesterol 172 LDL Cholesterol Direct 98 HDL Cholesterol 52 Procalcitonin 0.30 TSH 3rd Generation 0.40 L Arterial Blood Potassium HIV 1&2 Antibody Screen H.influenzae Type B Ag Ur L.pneumophila Ag Mycoplasma pneumon IgM N.meningitidis ACY/W135 N.meningi B/E.coli K1 Ag Group B Strep Antigen S. pneumoniae Antigen 11/14/18 11/14/18 11/15/18 19:25 21:12 06:41 WBC 9.2 RBC 4.30 Hgb 11.8 Hct 36.4 MCV 84.7 MCH 27.4 MCHC 32.4 L RDW 15.0 H Plt Count 363 MPV 8.5 Neut % (Auto) 85.3 H Lymph % (Auto) 10.5 L Baxter % (Auto) 3.5 Eos % (Auto) 0.2 Baso % (Auto) 0.5 Neut # (Auto) 7.9 H Lymph # (Auto) 1.0 Baxter # (Auto) 0.3 Eos # (Auto) 0.0 Baso # (Auto) 0.0 PT INR APTT D-Dimer, Quantitative Puncture Site pCO2 pO2 HCO3 ABG pH ABG Total CO2 ABG O2 Saturation ABG Base Excess Shaka Test ABG Potassium A-a O2 Difference Respiratory Index Sodium Chloride Glucose Lactate Liter Flow FiO2 Potassium Carbon Dioxide Anion Gap BUN Creatinine Est GFR ( Amer) Est GFR (Non-Af Amer) POC Glucose (mg/dL) 110 Random Glucose Hemoglobin A1c Calcium Total Bilirubin AST ALT Alkaline Phosphatase Total Protein Albumin Globulin Albumin/Globulin Ratio Triglycerides Cholesterol LDL Cholesterol Direct HDL Cholesterol Procalcitonin TSH 3rd Generation Arterial Blood Potassium HIV 1&2 Antibody Screen Negative H.influenzae Type B Ag Ur L.pneumophila Ag Mycoplasma pneumon IgM N.meningitidis ACY/W135 N.meningi B/E.coli K1 Ag Group B Strep Antigen S. pneumoniae Antigen 11/15/18 11/15/18 06:41 06:41 WBC RBC Hgb Hct MCV MCH MCHC RDW Plt Count MPV Neut % (Auto) Lymph % (Auto) Baxter % (Auto) Eos % (Auto) Baso % (Auto) Neut # (Auto) Lymph # (Auto) Baxter # (Auto) Eos # (Auto) Baso # (Auto) PT 14.6 H INR 1.3 APTT 32 D-Dimer, Quantitative Puncture Site pCO2 pO2 HCO3 ABG pH ABG Total CO2 ABG O2 Saturation ABG Base Excess Shaka Test ABG Potassium A-a O2 Difference Respiratory Index Sodium 135 Chloride 99 Glucose Lactate Liter Flow FiO2 Potassium 4.6 Carbon Dioxide 29 Anion Gap 12 BUN 15 Creatinine 1.2 Est GFR ( Amer) 55 Est GFR (Non-Af Amer) 45 POC Glucose (mg/dL) Random Glucose 100 Hemoglobin A1c Calcium 7.8 L Total Bilirubin 0.8 AST 40 H D ALT 35 Alkaline Phosphatase 69 Total Protein 6.9 Albumin 3.6 Globulin 3.2 Albumin/Globulin Ratio 1.1 Triglycerides Cholesterol LDL Cholesterol Direct HDL Cholesterol Procalcitonin TSH 3rd Generation Arterial Blood Potassium HIV 1&2 Antibody Screen H.influenzae Type B Ag Ur L.pneumophila Ag Mycoplasma pneumon IgM N.meningitidis ACY/W135 N.meningi B/E.coli K1 Ag Group B Strep Antigen S. pneumoniae Antigen Assessment & Plan (1) Pneumonia Status: Acute Comment: multifocal infiltrate. Continue antibiotics. QuantiFERON test. Follow-up culture and sensitivity. sputum for AFB
[2018-11-16] MEDS: guaiFENesin DM 200 mg-20 mg/10 ml UD PO PRN ×2 (05:23→17:43)
[2018-11-16] MEDS ORDERED: Albuterol-Ipratrop 3 mg / 0.5 (3 ml) UD INH SCH (06:30)
[2018-11-16] MEDS: Acetylcysteine 20% Inhal Soln (4ml) INH SCH (07:36)
[2018-11-16 08:02] LABS: BASO % 0.6 % (0.0-2.0); EOS % 0.2 % (0.0-4.0); HEMOGLOBIN 11.8 g/dL (11.0-16.0); LYMPH # 1.2 K/uL (1.0-4.3); LYMPH % 15.9 % (20.0-40.0); MEAN CELL VOLUME 84.7 fL (81.0-99.0); MEAN CORPUSCULAR HEMOGLOBIN 27.6 pg (27.0-31.0); MEAN CORPUSCULAR HGB CONC 32.6 g/dL (33.0-37.0); MEAN PLATELET VOLUME 8.4 fL (7.2-11.7); MONO # 0.3 K/uL (0.0-0.8); MONO % 4.3 % (0.0-10.0); RBC 4.26 Mil/uL (3.80-5.20); WHITE BLOOD COUNT 7.5 K/uL (4.8-10.8)
[2018-11-16 08:44] LABS: ALB/GLOB RATIO 1.1 (1.0-2.1); ALBUMIN 3.3 g/dL (3.5-5.0); CALCIUM 8.2 mg/dl (8.6-10.4)
[2018-11-16 08:45] LABS: HEPATITIS B SURFACE AG Negative (NEGATIVE)
[2018-11-16 08:50] LABS: HEPATITIS A IGM NEGATIVE (NEGATIVE); HEPATITIS B CORE AB NEGATIVE (NEGATIVE)
[2018-11-16 09:02] LABS: HEPATITIS C ANTIBODY NEGATIVE (NEGATIVE)
[2018-11-16] MEDS ORDERED: Potassium Chloride 20 mEq ER Tab PO ONE (10:48)
[2018-11-16] MEDS: Pantoprazole 40 mg EC Tab PO SCH (10:49)
[2018-11-16] MEDS: Enoxaparin 40 mg Syringe SC SCH (10:49)
[2018-11-16] MEDS: Lactobacillus Acidophilus 500 MU Cap PO SCH ×2 (10:49→17:41)
[2018-11-16] MEDS: Moxifloxacin IV 400mg/250ml NS 400 MG/250 ML BAG IVPB SCH (10:50)
--- NOTE | 2018-11-16 13:50 | CP.PCM.PN ---
Subjective - Date & Time of Evaluation Date of Evaluation: 11/16/18 Time of Evaluation: 13:00 - Subjective Subjective: PGY-1 Medicine Progress Note for Dr. Jorden Mishra Patient was seen and examined at bedside in no acute distress. Nurse reports no overnight events. Patient reports continual night sweats and continuing difficulty breathing with SOB. She feels better immediately after the nebulizer treatments, but worsens before the next one is due. She is able to walk to the restroom and reports no issues urinating or defecating. Her appetite is poor, an d is worse today as her stomach is distended without pain. She reports a nauseous feeling similar to when she was on Ciprofloxacin in [place] 4 years ago, so the Moxifloxacin was stopped. Objective - Vital Signs/Intake and Output Vital Signs (last 24 hours): Temp Pulse Resp BP Pulse Ox 99.2 F 95 H 20 115/75 93 L 11/16/18 08:32 11/16/18 08:32 11/16/18 08:32 11/16/18 10:49 11/16/18 08:32 Intake and Output: 11/16/18 11/16/18 06:59 18:59 Intake Total 240 Balance 240 - Medications Medications: Current Medications Acetaminophen (Tylenol 325mg Tab) 650 mg PO Q6 PRN PRN Reason: Fever >100.4 F Last Admin: 11/16/18 00:39 Dose: 650 mg Acetylcysteine (Acetylcysteine 20%) 4 ml INH Q24H VIN Last Admin: 11/16/18 07:36 Dose: 4 ml Albuterol/Ipratropium (Duoneb 3 Mg/0.5 Mg (3 Ml) Ud) 3 ml INH RQ4 PRN PRN Reason: Shortness of Breath Last Admin: 11/15/18 20:25 Dose: 3 ml Albuterol/Ipratropium (Duoneb 3 Mg/0.5 Mg (3 Ml) Ud) 3 ml INH RQ4 VIN Stop: 11/17/18 16:00 Amlodipine Besylate (Norvasc) 10 mg PO DAILY [facility] Last Admin: 11/16/18 10:49 Dose: 10 mg Docusate Sodium (Colace) 100 mg PO TID VIN Last Admin: 11/16/18 13:18 Dose: Not Given Enoxaparin Sodium (Lovenox) 40 mg SC DAILY [facility] Last Admin: 11/16/18 10:49 Dose: 40 mg Furosemide (Lasix) 40 mg PO DAILY [facility] Last Admin: 11/16/18 10:49 Dose: 40 mg Guaifenesin/Dextromethorphan (Robitussin Dm) 10 ml PO Q4H PRN PRN Reason: Cough and congestion Last Admin: 11/16/18 05:23 Dose: 10 ml Azithromycin 500 mg/ Sodium (Chloride) 250 mls @ 250 mls/hr IVPB DAILY [facility]; Protocol Piperacillin Sod/Tazobactam (Sod 3.375 gm/ Sodium Chloride) 100 mls @ 200 mls/hr IVPB Q6H VIN; Protocol Vancomycin HCl 1,000 mg/ (Sodium Chloride) 250 mls @ 166.6 mls/hr IVPB Q12H VIN; Protocol Lactobacillus Acidophilus (Bacid Acidophilus) 1 cap PO BID [facility] Last Admin: 11/16/18 10:49 Dose: 1 cap Losartan Potassium (Cozaar) 100 mg PO HS [facility] Last Admin: 11/15/18 21:44 Dose: 100 mg Nicotine (Nicoderm Cq) 1 patch TD DAILY [facility] Last Admin: 11/16/18 10:49 Dose: 1 patch Pantoprazole Sodium (Protonix Ec Tab) 40 mg PO DAILY [facility] Last Admin: 11/16/18 10:49 Dose: 40 mg - Labs Labs: 11/16/18 07:53 11/16/18 07:53 PT 14.6 SECONDS (9.7-12.2) H 11/15/18 06:41 INR 1.3 11/15/18 06:41 APTT 32 SECONDS (21-34) 11/15/18 06:41 - Constitutional Appears: Non-toxic, No Acute Distress - Head Exam Head Exam: ATRAUMATIC, NORMOCEPHALIC - Eye Exam Eye Exam: EOMI, Normal appearance - ENT Exam ENT Exam: Mucous Membranes Moist - Respiratory Exam Respiratory Exam: Rhonchi, Wheezes. absent: Accessory Muscle Use, Rales, Respiratory Distress Additional comments: O2 via NC 3L - Cardiovascular Exam Cardiovascular Exam: Tachycardia, +S1, +S2 - GI/Abdominal Exam GI & Abdominal Exam: Distended, Soft, Normal Bowel Sounds. absent: Firm, Guarding, Tenderness - Extremities Exam Extremities Exam: Normal Capillary Refill. absent: Calf Tenderness - Neurological Exam Neurological Exam: Alert, Awake, Oriented x3 - Psychiatric Exam Psychiatric exam: Normal Affect, Normal Mood - Skin Skin Exam: Normal Color, Warm Assessment and Plan - Assessment and Plan (Free Text) Assessment: 63yoF PMH HTN, hypertensive nephropathy, PUD, bronchitis admitted multifocal PNA. Plan: Healthcare Acquired Pneumonia - tachycardia at 96 on admission, leukocytosis of 12.1 - CXR, chest CT: multifocal B/L PNA - ABG: lactate 0.5, Procalcitonin 0.30 -> Sepsis unlikely - HIV and Influenza neg - f/u mycoplasma, legionella, strep pneumo Ag - isolation precautions TB - f/u quant gold, PPD (placed 11/14): neg at 48hrs, will recheck at 72 hrs - f/u sputum AFB cxs x4 (aided by Mucomyst and Duoneb) - Sputum Cx (11/14): pending - Blood Cx (11/14): neg at 48 hrs - Urine Cx (11/14): contaminated. f/u repeat Urine Cx - Avelox 400mg IVPB daily (11/14-11/16) stopped due to reaction similar to that she had to Cipro 4 years ago - Vancomycin 1gm IVPB q12 (started 11/16) - Vanc trough 11/18@0530 - Zosyn 3.375gm IVPB q6 (started 11/16) - Azithro 500mg IVPB daily (started 11/16) - Acetaminophen 650mg po q6 prn for fevers - Robitussin DM po q4 prn for cough r/o PE recent travel, obese, smoking, HTN, - d-dimer 363 - CTA (11/14): no evidence of PE - LE Doppler (11/14): neg for DVT Hypertension with Nephropathy - Amlodipine 10mg po daily - Furosemide 40mg po daily - Losartan 100mg po HS - monitor vitals Obesity - Lipid Panel: TG 58 Chol 172 LDL 98 HDL 52 - Hgb A1c 6.0 - TSH 0.40 Nicotine use - Nicotine 14mg/day patch 1 patch TD daily - educated on smoking cessation PUD - NSAIDS not recommended - Protonix 40mg po qd Weight loss - Patient denies ever having preventive measures taken: mammogram, PAP smear, colonoscopy - will advise patient to obtain via PMD on discharge as outpatient PPx - DVT: Lovenox 40mg sc daily, holding SCDs until Doppler studies read - GI: Protonix 40mg po daily, Bacid - Diet: HHD d/w Dr. Jorden Burroughs PGY-1
--- NOTE | 2018-11-16 14:37 | VASCLAB ---
Date of service: 11/15/2018 PROCEDURE: Lower Extremity Venous Duplex Exam. HISTORY: r/o DVT PRIORS: None. TECHNIQUE: Bilateral common femoral, femoral, popliteal and posterior tibial, peroneal and great saphenous veins were evaluated. Flow was assessed with color Doppler, compressibility, assessment of phasic flow and augmentation response. Report prepared by Tim Suazo, BS, RVT FINDINGS: RIGHT: 1. Common Femoral Vein: 1.1. Compressibility - Fully compressible: Thrombus - None : Flow - Phasic: Augmentation -Normal: Reflux - None. 2. Femoral Vein: 2.1. Compressibility - Fully compressible: Thrombus - None : Flow - Phasic: Augmentation -Normal: Reflux - None. 3. Popliteal Vein: 3.1. Compressibility - Fully compressible: Thrombus - None : Flow - Phasic: Augmentation -Normal: Reflux - None. 4. Posterior Tibial Vein: 4.1. Compressibility - Fully compressible: Thrombus - None: Flow - Phasic: Augmentation -Normal: Reflux - None. 5. Peroneal Vein: 5.1. Compressibility - Fully compressible: Thrombus - None: Flow - Phasic: Augmentation -Normal: Reflux - None. 6. Great Saphenous Vein: 6.1. Compressibility - Fully compressible: Thrombus - None: Flow - Phasic: Augmentation - Normal: Reflux - None. LEFT: 1. Common Femoral Vein: 1.1. Compressibility - Fully compressible: Thrombus - None: Flow - Phasic: Augmentation -Normal: Reflux - None. 2. Femoral Vein: 2.1. Compressibility - Fully compressible: Thrombus - None: Flow - Phasic: Augmentation -Normal: Reflux - None. 3. Popliteal Vein: 3.1. Compressibility - Fully compressible: Thrombus - None : Flow - Phasic: Augmentation -Normal: Reflux - None. 4. Posterior Tibial Vein: 4.1. Compressibility - Fully compressible: Thrombus - None: Flow - Phasic: Augmentation -Normal: Reflux - None. 5. Peroneal Vein: 5.1. Compressibility - Fully compressible: Thrombus - None: Flow - Phasic: Augmentation -Normal: Reflux - None. 6. Great Saphenous Vein: 6.1. Compressibility - Fully compressible: Thrombus - None: Flow - Phasic: Augmentation - Normal: Reflux - None. OTHER FINDINGS: Right: None significant. Left: None significant. IMPRESSION: Right: No evidence of deep or superficial vein thrombosis of the right lower extremity. Normal valve function noted of the right side. Left: No evidence of deep or superficial vein thrombosis of the left lower extremity. Normal valve function noted of the left side.
[2018-11-16] MEDS: Piperacillin/Tazobact 3.375 GM in Sodium Chloride 100 ML IVPB SCH ×2 (14:43→21:00)
[2018-11-16] MEDS: Albuterol-Ipratrop 3 mg / 0.5 (3 ml) UD INH SCH ×2 (15:54→19:50)
[2018-11-16] MEDS: Azithromycin 500 MG in Sodium Chloride 0.9% 250 ML IVPB SCH (17:42)
[2018-11-16] MEDS: Vancomycin 1 gm/NS 200 ml 1 GM/200 ML BAG IVPB SCH (17:43)
--- NOTE | 2018-11-16 21:26 | CP.PCM.CON ---
History of Present Illness - History of Present Illness History of Present Illness: dictated Past Patient History - Past Medical History & Family History Past Medical History?: Yes - Past Social History Smoking Status: Current Some Days Smoker - CARDIAC Hx Hypertension: Yes - PULMONARY Hx Bronchitis: Yes - HEENT Hx Glaucoma: Yes (LEFT EYE) - RENAL Hx Chronic Kidney Disease: Yes - MUSCULOSKELETAL/RHEUMATOLOGICAL Hx Falls: No Hx Unsteady Gait: No - GASTROINTESTINAL Hx Gastrointestinal Disorders: No - GENITOURINARY/GYNECOLOGICAL Hx Genitourinary Disorders: No - PSYCHIATRIC Hx Psychophysiologic Disorder: No Hx Substance Use: No - SURGICAL HISTORY Hx Surgeries: No - ANESTHESIA Hx Anesthesia: Yes Hx Anesthesia Reactions: No Hx Malignant Hyperthermia: No Has any member of the family had a problem w/ anesthesia?: No Meds Allergies/Adverse Reactions: Allergies Allergy/AdvReac Type Severity Reaction Status Date / Time No Known Allergies Allergy Verified 06/13/18 00:18 - Medications Medications: Current Medications Acetaminophen (Tylenol 325mg Tab) 650 mg PO Q6 PRN PRN Reason: Fever >100.4 F Last Admin: 11/16/18 00:39 Dose: 650 mg Acetylcysteine (Acetylcysteine 20%) 4 ml INH Q24H VIN Last Admin: 11/16/18 07:36 Dose: 4 ml Albuterol/Ipratropium (Duoneb 3 Mg/0.5 Mg (3 Ml) Ud) 3 ml INH RQ4 PRN PRN Reason: Shortness of Breath Last Admin: 11/15/18 20:25 Dose: 3 ml Albuterol/Ipratropium (Duoneb 3 Mg/0.5 Mg (3 Ml) Ud) 3 ml INH RQ4 VIN Stop: 11/17/18 16:00 Last Admin: 11/16/18 19:50 Dose: 3 ml Albuterol/Ipratropium (Duoneb 3 Mg/0.5 Mg (3 Ml) Ud) 3 ml INH ONCE ONE Stop: 11/17/18 06:31 Amlodipine Besylate (Norvasc) 10 mg PO DAILY [facility] Last Admin: 11/16/18 10:49 Dose: 10 mg Docusate Sodium (Colace) 100 mg PO TID [facility] Last Admin: 11/16/18 17:41 Dose: 100 mg Enoxaparin Sodium (Lovenox) 40 mg SC DAILY [facility] Last Admin: 11/16/18 10:49 Dose: 40 mg Furosemide (Lasix) 40 mg PO DAILY [facility] Last Admin: 11/16/18 10:49 Dose: 40 mg Guaifenesin/Dextromethorphan (Robitussin Dm) 10 ml PO Q4H PRN PRN Reason: Cough and congestion Last Admin: 11/16/18 17:43 Dose: 10 ml Azithromycin 500 mg/ Sodium (Chloride) 250 mls @ 250 mls/hr IVPB Q24H [facility]IN; Protocol Last Admin: 11/16/18 17:42 Dose: 250 mls/hr Piperacillin Sod/Tazobactam (Sod 3.375 gm/ Sodium Chloride) 100 mls @ 200 mls/hr IVPB Q6H [facility]IN; Protocol Last Admin: 11/16/18 14:43 Dose: 200 mls/hr Vancomycin/Sodium Chloride (Vancomycin 1 Gm/Ns 200 Ml) 1 gm in 200 mls @ 133.333 mls/hr IVPB Q12H [facility]IN; Protocol Stop: 11/21/18 18:01 Last Admin: 11/16/18 17:43 Dose: 133.333 mls/hr Lactobacillus Acidophilus (Bacid Acidophilus) 1 cap PO BID [facility] Last Admin: 11/16/18 17:41 Dose: 1 cap Losartan Potassium (Cozaar) 100 mg PO HS [facility] Last Admin: 11/15/18 21:44 Dose: 100 mg Nicotine (Nicoderm Cq) 1 patch TD DAILY [facility] Last Admin: 11/16/18 10:49 Dose: 1 patch Pantoprazole Sodium (Protonix Ec Tab) 40 mg PO DAILY [facility] Last Admin: 11/16/18 10:49 Dose: 40 mg Results - Vital Signs Recent Vital Signs: Last Vital Signs Temp 99.3 F 11/16/18 16:00 Pulse 76 11/16/18 16:00 Resp 20 11/16/18 16:00 BP 111/66 11/16/18 16:00 Pulse Ox 87 L 11/16/18 16:00 - Labs Result Diagrams: 11/16/18 07:53 11/16/18 07:53 Labs: Laboratory Results - last 24 hr 11/16/18 11/16/18 11/16/18 07:11 07:53 07:53 WBC 7.5 RBC 4.26 Hgb 11.8 Hct 36.1 MCV 84.7 MCH 27.6 MCHC 32.6 L RDW 15.0 H Plt Count 348 MPV 8.4 Neut % (Auto) 79.0 H Lymph % (Auto) 15.9 L [place] % (Auto) 4.3 Eos % (Auto) 0.2 Baso % (Auto) 0.6 Neut # (Auto) 6.0 Lymph # (Auto) 1.2 [place] # (Auto) 0.3 Eos # (Auto) 0.0 Baso # (Auto) 0.0 Sodium 134 Potassium 3.2 L Chloride 100 Carbon Dioxide 26 Anion Gap 11 BUN 16 Creatinine 1.2 Est GFR ( Amer) 55 Est GFR (Non-Af Amer) 45 POC Glucose (mg/dL) 125 H Random Glucose 115 H Calcium 8.2 L Phosphorus 3.8 Magnesium 1.9 Total Bilirubin 0.3 AST 37 H ALT 32 Alkaline Phosphatase 101 Total Protein 6.4 Albumin 3.3 L Globulin 3.0 Albumin/Globulin Ratio 1.1 Free T4 Hepatitis A IgM Ab Hep Bs Antigen Hep Bs Antibody Hep B Core IgM Ab Hepatitis C Antibody 11/16/18 11/16/18 11/16/18 07:53 07:53 07:53 WBC RBC Hgb Hct MCV MCH MCHC RDW Plt Count MPV Neut % (Auto) Lymph % (Auto) [place] % (Auto) Eos % (Auto) Baso % (Auto) Neut # (Auto) Lymph # (Auto) [place] # (Auto) Eos # (Auto) Baso # (Auto) Sodium Potassium Chloride Carbon Dioxide Anion Gap BUN Creatinine Est GFR ( Amer) Est GFR (Non-Af Amer) POC Glucose (mg/dL) Random Glucose Calcium Phosphorus Magnesium Total Bilirubin AST ALT Alkaline Phosphatase Total Protein Albumin Globulin Albumin/Globulin Ratio Free T4 1.18 Hepatitis A IgM Ab Negative Hep Bs Antigen Negative Hep Bs Antibody Negative Hep B Core IgM Ab Negative Hepatitis C Antibody Negative 11/16/18 11/16/18 11/16/18 11:19 16:23 21:19 WBC RBC Hgb Hct MCV MCH MCHC RDW Plt Count MPV Neut % (Auto) Lymph % (Auto) [place] % (Auto) Eos % (Auto) Baso % (Auto) Neut # (Auto) Lymph # (Auto) [place] # (Auto) Eos # (Auto) Baso # (Auto) Sodium Potassium Chloride Carbon Dioxide Anion Gap BUN Creatinine Est GFR ( Amer) Est GFR (Non-Af Amer) POC Glucose (mg/dL) 196 H 151 H 155 H Random Glucose Calcium Phosphorus Magnesium Total Bilirubin AST ALT Alkaline Phosphatase Total Protein Albumin Globulin Albumin/Globulin Ratio Free T4 Hepatitis A IgM Ab Hep Bs Antigen Hep Bs Antibody Hep B Core IgM Ab Hepatitis C Antibody
--- NOTE | 2018-11-16 22:57 | CP.PCM.PN ---
Subjective - Date & Time of Evaluation Date of Evaluation: 11/16/18 Time of Evaluation: 19:00 - Subjective Subjective: Pulmonary Follow up, Covering Dr Reeves The patient was Seen/interviewed and examined by me at the bedside, Medical records reviewed and Management issues were discussed and formulated with the house staff. Events reviewed Patient was seen and examined at bedside. Patient is 63 year old female with PMHx of HTN, hypertensive kidney disease, PUD, and chronic bronchitis who presents to the ED with malaise, fevers, and cough with blood tinged sputum for the past 3 days. Patient recently traveled from [place] and arrived on 11/11. He fell ill after his flight. Reports fevers of 101F at home. Denies recent weight loss, diaphoresis, chest pain, SOB, nausea, dysuria. Hx of episodes of bronchitis occur every 1-2 yrs, treated with ABX. Reports she doesn't feel better and is SOB. Can't get enough air with deep breath. Stable vitals. O2 sat 92% NC. T 98.9F Negative Hep panel, meningitis, Flu, HIV, Group B strep, S. pneumoniae F/u Quantifero test, sputum culture for AFB. Wilkl switch Moxifloxacin to IV Zosyn/Vanco. Follow up cultures Suplemental oxygen Continue Duoneb. Objective - Vital Signs/Intake and Output Vital Signs (last 24 hours): Temp Pulse Resp BP Pulse Ox 99.3 F 76 20 111/66 87 L 11/16/18 16:00 11/16/18 16:00 11/16/18 16:00 11/16/18 16:00 11/16/18 16:00 Intake and Output: 11/16/18 11/17/18 18:59 06:59 Intake Total 300 Balance 300 - Medications Medications: Current Medications Acetaminophen (Tylenol 325mg Tab) 650 mg PO Q6 PRN PRN Reason: Fever >100.4 F Last Admin: 11/16/18 00:39 Dose: 650 mg Acetylcysteine (Acetylcysteine 20%) 4 ml INH Q24H VIN Last Admin: 11/16/18 07:36 Dose: 4 ml Albuterol/Ipratropium (Duoneb 3 Mg/0.5 Mg (3 Ml) Ud) 3 ml INH RQ4 PRN PRN Reason: Shortness of Breath Last Admin: 11/15/18 20:25 Dose: 3 ml Albuterol/Ipratropium (Duoneb 3 Mg/0.5 Mg (3 Ml) Ud) 3 ml INH RQ4 VIN Stop: 11/17/18 16:00 Last Admin: 11/16/18 19:50 Dose: 3 ml Albuterol/Ipratropium (Duoneb 3 Mg/0.5 Mg (3 Ml) Ud) 3 ml INH ONCE ONE Stop: 11/17/18 06:31 Amlodipine Besylate (Norvasc) 10 mg PO DAILY [facility] Last Admin: 11/16/18 10:49 Dose: 10 mg Docusate Sodium (Colace) 100 mg PO TID [facility] Last Admin: 11/16/18 17:41 Dose: 100 mg Enoxaparin Sodium (Lovenox) 40 mg SC DAILY [facility] Last Admin: 11/16/18 10:49 Dose: 40 mg Furosemide (Lasix) 40 mg PO DAILY [facility] Last Admin: 11/16/18 10:49 Dose: 40 mg Guaifenesin/Dextromethorphan (Robitussin Dm) 10 ml PO Q4H PRN PRN Reason: Cough and congestion Last Admin: 11/16/18 17:43 Dose: 10 ml Azithromycin 500 mg/ Sodium (Chloride) 250 mls @ 250 mls/hr IVPB Q24H VIN; Protocol Last Admin: 11/16/18 17:42 Dose: 250 mls/hr Piperacillin Sod/Tazobactam (Sod 3.375 gm/ Sodium Chloride) 100 mls @ 200 mls/hr IVPB Q6H VIN; Protocol Last Admin: 11/16/18 21:00 Dose: 200 mls/hr Vancomycin/Sodium Chloride (Vancomycin 1 Gm/Ns 200 Ml) 1 gm in 200 mls @ 133.333 mls/hr IVPB Q12H VIN; Protocol Stop: 11/21/18 18:01 Last Admin: 11/16/18 17:43 Dose: 133.333 mls/hr Lactobacillus Acidophilus (Bacid Acidophilus) 1 cap PO BID [facility] Last Admin: 11/16/18 17:41 Dose: 1 cap Losartan Potassium (Cozaar) 100 mg PO HS [facility] Last Admin: 11/16/18 21:56 Dose: 100 mg Nicotine (Nicoderm Cq) 1 patch TD DAILY [facility] Last Admin: 11/16/18 10:49 Dose: 1 patch Pantoprazole Sodium (Protonix Ec Tab) 40 mg PO DAILY [facility] Last Admin: 11/16/18 10:49 Dose: 40 mg - Labs Labs: 11/16/18 07:53 11/16/18 07:53 PT 14.6 SECONDS (9.7-12.2) H 11/15/18 06:41 INR 1.3 11/15/18 06:41 APTT 32 SECONDS (21-34) 11/15/18 06:41 - Constitutional Appears: In Acute Distress (mild distress, tachypnea) - Eye Exam Eye Exam: EOMI, Normal appearance. absent: Conjunctival injection Pupil Exam: NORMAL ACCOMODATION - ENT Exam ENT Exam: Mucous Membranes Moist - Neck Exam Neck Exam: Full ROM - Respiratory Exam Respiratory Exam: Decreased Breath Sounds, Rhonchi, Wheezes. absent: Accessory Muscle Use, Chest Wall Tenderness, Clear to Ausculation Bilateral, Prolonged Expiratory Phase, Rales, NORMAL BREATHING PATTERN - Cardiovascular Exam Cardiovascular Exam: RRR, +S1. absent: Bradycardia, Tachycardia, JVD - GI/Abdominal Exam GI & Abdominal Exam: Soft, Normal Bowel Sounds. absent: Tenderness - Extremities Exam Extremities Exam: Full ROM, Normal Capillary Refill, Normal Inspection. absent: Joint Swelling, Pedal Edema - Back Exam Back Exam: absent: CVA tenderness (L), CVA tenderness (R) - Neurological Exam Neurological Exam: Alert, Awake, Oriented x3. absent: Motor Sensory Deficit Assessment and Plan (1) Pneumonia Status: Acute - Assessment and Plan (Free Text) Assessment: CXR: Bilateral multifocal infiltrate Will switch Moxifloxacin to IV Zosyn/Vanco. Follow up cultures and sensitivity. F/u Quantifero test Sputum for AFB Suplemental oxygen Continue Duoneb.
[2018-11-17] MEDS: Albuterol-Ipratrop 3 mg / 0.5 (3 ml) UD INH SCH ×5 (00:52→16:35)
[2018-11-17] MEDS: Piperacillin/Tazobact 3.375 GM in Sodium Chloride 100 ML IVPB SCH ×4 (01:34→21:20)
[2018-11-17] MEDS: Vancomycin 1 gm/NS 200 ml 1 GM/200 ML BAG IVPB SCH ×2 (05:06→17:37)
--- NOTE | 2018-11-17 05:43 | CON ---
DATE: 11/16/2018 INFECTIOUS DISEASE CONSULT REQUESTING PHYSICIAN: Amando Mishra DO HISTORY OF PRESENT ILLNESS: She is a 63-year-old female. She comes from [place]. She landed here on Tuesday, that is like 5 days ago from [place]; and she suffers from hypertension and hypertensive kidney disease, peptic ulcer disease, chronic bronchitis; and she has been having three days of fever, cough, and she also had blood-tinged sputum. She gives history of having chronic bronchitis. She also has been a smoker, and she also tells me that she just finished a 10-day course of cephalexin for kidney infection that was there, and the patient traveled from [place] on 11/11/2018 and was feeling ill, status post flight, excessive sneezing, chills, and fevers, and she has had generalized malaise, weakness, and fatigue, and has been having brown sputum. PAST MEDICAL HISTORY: Significant for hypertension, hypertensive nephropathy, peptic ulcer disease, GI bleed, bronchitis, glaucoma. PAST SURGICAL HISTORY: Significant for appendicectomy, left eye surgery. ALLERGIES: SHE IS NOT ALLERGIC TO ANY MEDICINE. MEDICATIONS: Her medications were reviewed. She is a smoker, has 10-pack-per year per smoking history. 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 FAMILY HISTORY: Noncontributory. REVIEW OF SYSTEMS: As above. PHYSICAL EXAMINATION: GENERAL: T-max is 99.3 right now, pulse is 76, blood pressure 111/66, respirations are 20, oxygen saturation is 87%, it is kind of low. She is awake, alert, and obese. Her weight is 170 and 5 feet and 3 inches, it is not that bad. HEENT: Head is atraumatic and normocephalic. NECK: Supple. JVP is flat. No lymphadenopathy present. LUNGS: Decreased breath sounds bilaterally. HEART: S1 and S2 tachycardic before, but now it is regular. ABDOMEN: Soft. Nontender. No guarding. No rigidity present. EXTREMITIES: Have trace edema bilaterally. She is on bed now. LABORATORY DATA: White count is 12.1 and now is 7.5, hemoglobin is 11.8, hematocrit 36.1, platelet count is 348. Neutrophils are 79, lymphs are 15.9, potassium was 3.2. They have supplemented it, and her AST is 37, albumin is 3.3. Serology, they did as Strep pneumonia which is negative. Influenza is negative. HIV is negative. all are negative. Hepatitis screening is negative for B, C, and A; chest CT was done on 11/14/2018 which shows no large central pulmonary emboli, limitation of current examination, qualitative and quantitative assessment of opacification of pulmonary artery precludes assessment beyond the segmental branch. Multifocal infiltrates bilaterally and adenopathy. Followup infiltrates recommended to resolution so they recommend for resolution. She is in airborne precaution. She was also seen Dr. Reeves, pneumonia, multifocal infiltrate. Continue antibiotics. QuantiFERON test. Follow up for culture and sensitivity and sputum for AFB, so I want to make sure of her medications. IMPRESSION: My impression is she does have multifocal pneumonia. She has history of smoking. She has history of travel, and she was sick before and has had cephalosporin and now comes in with multifocal pneumonia. At this time, she needs extensive more empiric broad spectrum antibiotics to cover, and she does give history of chronic bronchitis every year. We will rule out AFB, but I doubt she has that but cannot say, and we will continue airborne precaution at this time most likely is bronchitis, we will need serial x-rays once. She is on medications. I want to go over her medications, and I find she is on acetylcysteine, on albuterol every 4 hours, and she is on amlodipine. She is on Zithromax, Colace, Lasix, guaifenesin, lactobacillus, losartan, nicotine, pantoprazole, and she is on Zosyn and vancomycin at this time. She has a history of travel even though fluids negative. I asked her, she had no joint pain so we will keep off the Tamiflu for now, and we will follow with the Pulmonary, and we will order sputum C and S and gold quantiFERON test if not ordered. We will follow with you. Emerald Camacho MD
[2018-11-17] MEDS ORDERED: Albuterol-Ipratrop 3 mg / 0.5 (3 ml) UD INH ONE (06:30)
[2018-11-17 07:24] LABS: BASO % 0.5 % (0.0-2.0); EOS # 0.1 K/uL (0.0-0.7); HEMOGLOBIN 10.4 g/dL (11.0-16.0); LYMPH # 1.4 K/uL (1.0-4.3); LYMPH % 19.7 % (20.0-40.0); MEAN CELL VOLUME 84.1 fL (81.0-99.0); MEAN CORPUSCULAR HEMOGLOBIN 27.9 pg (27.0-31.0); MEAN CORPUSCULAR HGB CONC 33.1 g/dL (33.0-37.0); MEAN PLATELET VOLUME 8.3 fL (7.2-11.7); MONO # 0.3 K/uL (0.0-0.8); MONO % 5.1 % (0.0-10.0); NEUT % 73.7 % (50.0-75.0); RBC 3.72 Mil/uL (3.80-5.20); RED CELL DISTRIBUTION WIDTH 15.2 % (11.5-14.5); WHITE BLOOD COUNT 6.8 K/uL (4.8-10.8)
[2018-11-17 07:40] LABS: ALB/GLOB RATIO 1.1 (1.0-2.1); ALBUMIN 3.1 g/dL (3.5-5.0); CALCIUM 7.5 mg/dl (8.6-10.4)
[2018-11-17] MEDS: Acetylcysteine 20% Inhal Soln (4ml) INH SCH (08:00)
[2018-11-17] MEDS ORDERED: Potassium Chloride 20 mEq ER Tab PO ONE (08:21)
[2018-11-17] MEDS: Pantoprazole 40 mg EC Tab PO SCH (09:44)
[2018-11-17] MEDS: Lactobacillus Acidophilus 500 MU Cap PO SCH ×2 (09:44→17:36)
[2018-11-17] MEDS ORDERED: Influenza Vaccine 60 MCG/0.5 ML SYR (3 yr & up) IM ONE (10:00)
[2018-11-17] MEDS: Enoxaparin 40 mg Syringe SC SCH (10:01)
[2018-11-17] MEDS: Azithromycin 500 MG in Sodium Chloride 0.9% 250 ML IVPB SCH (16:43)
--- NOTE | 2018-11-17 18:17 | CP.PCM.PN ---
Subjective - Date & Time of Evaluation Date of Evaluation: 11/17/18 Time of Evaluation: 15:00 - Subjective Subjective: PGY-1 Medicine Progress Note for Dr. Jorden Mishra Patient was seen and examined today at bedside in no acute distress. Nurse reports no overnight events. Patient has no new complaints. Does not report any side effects from the change in antibiotic regimen, but is feeling better without the Avelox. Denies chest pain, abdominal pain, nausea, vomiting, difficulty urinating or defecating. Objective - Vital Signs/Intake and Output Vital Signs (last 24 hours): Temp Pulse Resp BP Pulse Ox 98.3 F 77 20 114/74 94 L 11/17/18 15:30 11/17/18 15:30 11/17/18 15:30 11/17/18 15:30 11/17/18 15:30 Intake and Output: 11/17/18 11/17/18 06:59 18:59 Intake Total 880 800 Balance 880 800 - Medications Medications: Current Medications Acetaminophen (Tylenol 325mg Tab) 650 mg PO Q6 PRN PRN Reason: Fever >100.4 F Last Admin: 11/16/18 00:39 Dose: 650 mg Acetylcysteine (Acetylcysteine 20%) 4 ml INH Q24H [facility]IN Last Admin: 11/17/18 08:00 Dose: 4 ml Albuterol/Ipratropium (Duoneb 3 Mg/0.5 Mg (3 Ml) Ud) 3 ml INH RQ4 PRN PRN Reason: Shortness of Breath Last Admin: 11/15/18 20:25 Dose: 3 ml Amlodipine Besylate (Norvasc) 10 mg PO DAILY [facility] Last Admin: 11/17/18 09:44 Dose: 10 mg Docusate Sodium (Colace) 100 mg PO TID [facility] Last Admin: 11/17/18 17:35 Dose: 100 mg Enoxaparin Sodium (Lovenox) 40 mg SC DAILY [facility] Last Admin: 11/17/18 10:01 Dose: 40 mg Furosemide (Lasix) 40 mg PO DAILY [facility] Last Admin: 11/17/18 10:37 Dose: 40 mg Guaifenesin/Dextromethorphan (Robitussin Dm) 10 ml PO Q4H PRN PRN Reason: Cough and congestion Last Admin: 11/16/18 17:43 Dose: 10 ml Azithromycin 500 mg/ Sodium (Chloride) 250 mls @ 250 mls/hr IVPB Q24H [facility]; Protocol Last Admin: 11/17/18 16:43 Dose: 250 mls/hr Piperacillin Sod/Tazobactam (Sod 3.375 gm/ Sodium Chloride) 100 mls @ 200 mls/hr IVPB Q6H [facility]; Protocol Last Admin: 11/17/18 13:53 Dose: 200 mls/hr Vancomycin/Sodium Chloride (Vancomycin 1 Gm/Ns 200 Ml) 1 gm in 200 mls @ 133.333 mls/hr IVPB Q12H [facility]; Protocol Stop: 11/21/18 18:01 Last Admin: 11/17/18 17:37 Dose: 133.333 mls/hr Lactobacillus Acidophilus (Bacid Acidophilus) 1 cap PO BID [facility] Last Admin: 11/17/18 17:36 Dose: 1 cap Losartan Potassium (Cozaar) 100 mg PO HS [facility] Last Admin: 11/16/18 21:56 Dose: 100 mg Nicotine (Nicoderm Cq) 1 patch TD DAILY [facility] Last Admin: 11/17/18 09:44 Dose: 1 patch Pantoprazole Sodium (Protonix Ec Tab) 40 mg PO DAILY [facility] Last Admin: 11/17/18 09:44 Dose: 40 mg - Labs Labs: 11/17/18 07:10 11/17/18 07:10 PT 14.6 SECONDS (9.7-12.2) H 11/15/18 06:41 INR 1.3 11/15/18 06:41 APTT 32 SECONDS (21-34) 11/15/18 06:41 - Constitutional Appears: Non-toxic, No Acute Distress - Head Exam Head Exam: ATRAUMATIC, NORMOCEPHALIC - Eye Exam Eye Exam: EOMI, Normal appearance - ENT Exam ENT Exam: Mucous Membranes Moist - Respiratory Exam Respiratory Exam: Rhonchi, Wheezes. absent: Accessory Muscle Use, Decreased Breath Sounds, Rales, Respiratory Distress Additional comments: 3L O2 via NC - Cardiovascular Exam Cardiovascular Exam: REGULAR RHYTHM, +S1, +S2 - GI/Abdominal Exam GI & Abdominal Exam: Soft, Normal Bowel Sounds. absent: Firm, Guarding, Rigid, Tenderness - Extremities Exam Extremities Exam: Normal Capillary Refill. absent: Calf Tenderness - Neurological Exam Neurological Exam: Alert, Awake, Oriented x3 - Psychiatric Exam Psychiatric exam: Normal Affect, Normal Mood - Skin Skin Exam: Normal Color, Warm Assessment and Plan - Assessment and Plan (Free Text) Assessment: 63yoF PMH HTN, hypertensive nephropathy, PUD, bronchitis admitted multifocal PNA. Plan: Multifocal Healthcare Acquired Pneumonia - Patient is no longer on Airborne Isolation - tachycardia at 96 on admission, leukocytosis of 12.1 - CXR, chest CT: multifocal B/L PNA - ABG: lactate 0.5, Procalcitonin 0.30 -> Sepsis unlikely - HIV and Influenza neg - Mycoplasma, legionella, strep pneumo Ag all negative - PPD (placed 11/14): neg at 48hrs and 72hrs. Quantiferon Gold indeterminate - f/u sputum AFB cxs x4 (aided by Mucomyst and Duoneb). First two negative - Sputum Cx (11/14): normal oral grayson - Blood Cx (11/14): neg at 3 days - Urine Cx (11/14): contaminated. f/u repeat Urine Cx - Avelox 400mg IVPB daily (11/14-11/16) stopped due to reaction similar to that she had to Cipro 4 years ago - Vancomycin 1gm IVPB q12 (started 11/16) - Vanc trough 11/18@0530 - Zosyn 3.375gm IVPB q6 (started 11/16) - Azithro 500mg IVPB daily (started 11/16) - Acetaminophen 650mg po q6 prn for fevers - Robitussin DM po q4 prn for cough r/o PE recent travel, obese, smoking, HTN, - d-dimer 363 - CTA (11/14): no evidence of PE - LE Doppler (11/14): neg for DVT Hypertension with Nephropathy - Amlodipine 10mg po daily - Furosemide 40mg po daily - Losartan 100mg po HS - monitor vitals Obesity - Lipid Panel: TG 58 Chol 172 LDL 98 HDL 52 - Hgb A1c 6.0 - TSH 0.40 Nicotine use - Nicotine 14mg/day patch 1 patch TD daily - educated on smoking cessation PUD - NSAIDS not recommended - Protonix 40mg po qd Weight loss - Patient denies ever having preventive measures taken: mammogram, PAP smear, colonoscopy - will advise patient to obtain via PMD on discharge as outpatient PPx - DVT: Lovenox 40mg sc daily, SCDs - GI: Protonix 40mg po daily, Bacid - Diet: HHD d/w Dr. Jorden Burroughs PGY-1
[2018-11-17] MEDS: guaiFENesin DM 200 mg-20 mg/10 ml UD PO PRN (19:25)
[2018-11-17] MEDS: Albuterol-Ipratrop 3 mg / 0.5 (3 ml) UD INH PRN (19:55)
--- NOTE | 2018-11-18 00:25 | PN ---
DATE: 11/17/2018 SUBJECTIVE: The patient was afebrile. She is feeling better. Pulse is 77, blood pressure 114/74, respirations are 20. The resident told me that two AFBs are negative, and the PPD was negative. Her gold QuantiFERON came out indeterminate. She since is improving, I doubt it is TB. We discontinued the isolation. PHYSICAL EXAMINATION: VITAL SIGNS: Her vitals are stable. T-max is 98.3, pulse 77, blood pressure 114/74, saturation still remains low at 94. HEENT: Head is atraumatic and normocephalic. NECK: Supple. LUNGS: Have occasional wheeze and rhonchi. HEART: S1 and S2 are regular. ABDOMEN: Soft, nontender. No guarding. No rigidity present. EXTREMITIES: Have no edema. LABORATORY DATA: Her white count is 6.8. BUN is 17, creatinine is 1.4. ASSESSMENT AND PLAN: She has multifocal healthcare-acquired pneumonia. Why I would say multifocal healthcare acquired pneumonia, she did have a history of travel and comes from [place], multifocal pneumonia is probably. Influenza is negative, however. She did have antibiotics. She had some reaction to Avelox, so she is on vancomycin and Zosyn. We have started long-term strong antibiotics because she had taken antibiotics before. She has bilateral multifocal pneumonia and is on vancomycin and Zosyn at this time. We will follow. Emerald Camacho MD
[2018-11-18] MEDS: Piperacillin/Tazobact 3.375 GM in Sodium Chloride 100 ML IVPB SCH ×4 (01:55→19:49)
[2018-11-18] MEDS: guaiFENesin DM 200 mg-20 mg/10 ml UD PO PRN (02:01)
[2018-11-18] MEDS: Albuterol-Ipratrop 3 mg / 0.5 (3 ml) UD INH PRN ×2 (04:53→19:59)
--- NOTE | 2018-11-18 07:44 | CP.PCM.PN ---
Subjective - Date & Time of Evaluation Date of Evaluation: 11/18/18 Time of Evaluation: 09:30 - Subjective Subjective: PGY-[address] Amando Mishra Patient is seen and examined at bedside. Patient reports feeling well. Patient admits to improvement of her cough, which is now not productive. Patient admits to loose stools, but says that is normal for her. PAtient admits to not having an appetite. Patient denies fever, chills, chest pain, sob, n/v/d/c or urinary complains Objective - Vital Signs/Intake and Output Vital Signs (last 24 hours): Temp Pulse Resp BP Pulse Ox 98 F 74 20 117/74 94 L 11/18/18 00:00 11/18/18 00:00 11/18/18 00:00 11/18/18 00:00 11/18/18 00:00 Intake and Output: 11/18/18 11/18/18 06:59 18:59 Intake Total 1250 Balance 1250 - Medications Medications: Current Medications Acetaminophen (Tylenol 325mg Tab) 650 mg PO Q6 PRN PRN Reason: Fever >100.4 F Last Admin: 11/16/18 00:39 Dose: 650 mg Acetylcysteine (Acetylcysteine 20%) 4 ml INH Q24H [facility]IN Last Admin: 11/17/18 08:00 Dose: 4 ml Albuterol/Ipratropium (Duoneb 3 Mg/0.5 Mg (3 Ml) Ud) 3 ml INH RQ4 PRN PRN Reason: Shortness of Breath Last Admin: 11/18/18 04:53 Dose: 3 ml Amlodipine Besylate (Norvasc) 10 mg PO DAILY [facility]IN Last Admin: 11/17/18 09:44 Dose: 10 mg Docusate Sodium (Colace) 100 mg PO TID [facility]IN Last Admin: 11/17/18 17:35 Dose: 100 mg Enoxaparin Sodium (Lovenox) 40 mg SC DAILY [facility] Last Admin: 11/17/18 10:01 Dose: 40 mg Furosemide (Lasix) 40 mg PO DAILY [facility] Last Admin: 11/17/18 10:37 Dose: 40 mg Guaifenesin/Dextromethorphan (Robitussin Dm) 10 ml PO Q4H PRN PRN Reason: Cough and congestion Last Admin: 11/18/18 02:01 Dose: 10 ml Azithromycin 500 mg/ Sodium (Chloride) 250 mls @ 250 mls/hr IVPB Q24H VIN; Protocol Last Admin: 11/17/18 16:43 Dose: 250 mls/hr Piperacillin Sod/Tazobactam (Sod 3.375 gm/ Sodium Chloride) 100 mls @ 200 mls/hr IVPB Q6H [facility]IN; Protocol Last Admin: 11/18/18 01:55 Dose: 200 mls/hr Vancomycin/Sodium Chloride (Vancomycin 1 Gm/Ns 200 Ml) 1 gm in 200 mls @ 133.333 mls/hr IVPB Q12H VIN; Protocol Stop: 11/23/18 09:01 Lactobacillus Acidophilus (Bacid Acidophilus) 1 cap PO BID [facility]IN Last Admin: 11/17/18 17:36 Dose: 1 cap Losartan Potassium (Cozaar) 100 mg PO HS [facility]IN Last Admin: 11/17/18 22:07 Dose: 100 mg Nicotine (Nicoderm Cq) 1 patch TD DAILY [facility] Last Admin: 11/17/18 09:44 Dose: 1 patch Pantoprazole Sodium (Protonix Ec Tab) 40 mg PO DAILY [facility]IN Last Admin: 11/17/18 09:44 Dose: 40 mg - Labs Labs: 11/17/18 07:10 11/17/18 07:10 PT 14.6 SECONDS (9.7-12.2) H 11/15/18 06:41 INR 1.3 11/15/18 06:41 APTT 32 SECONDS (21-34) 11/15/18 06:41 - Constitutional Appears: Well, Non-toxic, No Acute Distress - Head Exam Head Exam: ATRAUMATIC, NORMAL INSPECTION, NORMOCEPHALIC - Eye Exam Eye Exam: EOMI, Normal appearance - ENT Exam ENT Exam: Mucous Membranes Moist, Normal Exam, Normal Oropharynx - Neck Exam Neck Exam: Full ROM, Normal Inspection - Respiratory Exam Respiratory Exam: Clear to Ausculation Bilateral, NORMAL BREATHING PATTERN. absent: Accessory Muscle Use, Rales, Rhonchi, Wheezes, Respiratory Distress - Cardiovascular Exam Cardiovascular Exam: REGULAR RHYTHM, +S1, +S2 - GI/Abdominal Exam GI & Abdominal Exam: Soft, Normal Bowel Sounds - Extremities Exam Extremities Exam: Full ROM, Normal Inspection - Back Exam Back Exam: NORMAL INSPECTION - Neurological Exam Neurological Exam: Alert, Awake, Oriented x3 - Psychiatric Exam Psychiatric exam: Normal Affect, Normal Mood - Skin Skin Exam: Dry, Intact, Normal Color, Warm Assessment and Plan - Assessment and Plan (Free Text) Plan: Multifocal Healthcare Acquired Pneumonia - Patient off isolation precautions - tachycardia at 96 on admission, leukocytosis of 12.1 - CXR, chest CT: multifocal B/L PNA - ABG: lactate 0.5, Procalcitonin 0.30 -> Sepsis unlikely - HIV and Influenza neg - Mycoplasma, legionella, strep pneumo Ag all negative - PPD (placed 11/14): neg at 48hrs and 72hrs. Quantiferon Gold indeterminate - sputum AFB cxs x3 - negative - Sputum Cx (11/14): normal oral grayson - Blood Cx (11/14): neg at 3 days - will follow up for 5 days results on 11/20 - if bcx is negative, then we will arrange for patient to continue medication PO and will be d/c home - Urine Cx (11/14): contaminated. f/u repeat Urine Cx - no growth ID consulted - Dr Camacho - f/u recs Pulm consulted - Dr Reeves - f/u recs Meds: - Vancomycin 1gm IVPB q12 - Vanc trough - 15.4 - Vanc trough 11/20 at 8:30 am - Zosyn 3.375gm IVPB q6 - Azithro 500mg IVPB daily - Acetaminophen 650mg po q6 prn for fevers - Robitussin DM po q4 prn for cough r/o PE recent travel, obese, smoking, HTN, - d-dimer 363 - CTA (11/14): no evidence of PE - LE Doppler (11/14): neg for DVT Hypertension with Nephropathy - Amlodipine 10mg po daily - Furosemide 40mg po daily - Losartan 100mg po HS - monitor vitals Nicotine use - Nicotine 14mg/day patch 1 patch TD daily PUD - Protonix 40mg po qd PPx - DVT: Lovenox 40mg sc daily, SCDs - GI: Protonix 40mg po daily, Bacid, colace - Diet: HHD - tylenol Q6 PRN Plan discussed with Dr Tad Rod, PGY-1
[2018-11-18 08:02] LABS: BASO % 0.5 % (0.0-2.0); EOS # 0.2 K/uL (0.0-0.7); EOS % 2.4 % (0.0-4.0); HEMOGLOBIN 9.8 g/dL (11.0-16.0); LYMPH # 1.2 K/uL (1.0-4.3); LYMPH % 16.4 % (20.0-40.0); MEAN CELL VOLUME 84.5 fL (81.0-99.0); MEAN CORPUSCULAR HEMOGLOBIN 27.5 pg (27.0-31.0); MEAN CORPUSCULAR HGB CONC 32.6 g/dL (33.0-37.0); MEAN PLATELET VOLUME 8.4 fL (7.2-11.7); MONO # 0.3 K/uL (0.0-0.8); MONO % 4.8 % (0.0-10.0); NEUT # 5.5 K/uL (1.8-7.0); NEUT % 75.9 % (50.0-75.0); NRBC % 0.1 % (0.0-2.0); RBC 3.57 Mil/uL (3.80-5.20); RED CELL DISTRIBUTION WIDTH 15.4 % (11.5-14.5); WHITE BLOOD COUNT 7.3 K/uL (4.8-10.8)
[2018-11-18 08:18] LABS: ALB/GLOB RATIO 1.1 (1.0-2.1); ALBUMIN 3.3 g/dL (3.5-5.0); ALT/SGPT 49 U/L (9-52); AST/SGOT 48 U/L (14-36); BLOOD UREA NITROGEN 16 mg/dL (7-17); CALCIUM 8.2 mg/dl (8.6-10.4); GFR NON-AFRICAN AMERICAN 50
[2018-11-18] MEDS: Lactobacillus Acidophilus 500 MU Cap PO SCH ×2 (10:04→17:41)
[2018-11-18] MEDS: Vancomycin 1 gm/NS 200 ml 1 GM/200 ML BAG IVPB SCH ×2 (10:04→20:56)
[2018-11-18] MEDS: Enoxaparin 40 mg Syringe SC SCH (10:06)
[2018-11-18] MEDS: Pantoprazole 40 mg EC Tab PO SCH (10:06)
[2018-11-18] MEDS: Azithromycin 500 MG in Sodium Chloride 0.9% 250 ML IVPB SCH (17:30)
[2018-11-19] MEDS: Piperacillin/Tazobact 3.375 GM in Sodium Chloride 100 ML IVPB SCH ×4 (02:13→19:35)
[2018-11-19] MEDS: guaiFENesin DM 200 mg-20 mg/10 ml UD PO PRN ×2 (02:18→21:15)
[2018-11-19 08:06] LABS: ALB/GLOB RATIO 1.2 (1.0-2.1); ALBUMIN 3.4 g/dL (3.5-5.0); ALT/SGPT 51 U/L (9-52); AST/SGOT 38 U/L (14-36); BLOOD UREA NITROGEN 16 mg/dL (7-17); CALCIUM 8.2 mg/dl (8.6-10.4); GFR NON-AFRICAN AMERICAN 50
[2018-11-19 08:14] LABS: BASO # 0.1 K/uL (0.0-0.2); BASO % 0.7 % (0.0-2.0); EOS # 0.3 K/uL (0.0-0.7); EOS % 4.2 % (0.0-4.0); HEMOGLOBIN 9.9 g/dL (11.0-16.0); LYMPH # 1.4 K/uL (1.0-4.3); LYMPH % 19.2 % (20.0-40.0); MEAN CELL VOLUME 83.9 fL (81.0-99.0); MEAN CORPUSCULAR HEMOGLOBIN 27.7 pg (27.0-31.0); MEAN CORPUSCULAR HGB CONC 33.1 g/dL (33.0-37.0); MEAN PLATELET VOLUME 8.5 fL (7.2-11.7); MONO # 0.4 K/uL (0.0-0.8); MONO % 6.1 % (0.0-10.0); NEUT # 5.1 K/uL (1.8-7.0); NEUT % 69.8 % (50.0-75.0); RBC 3.56 Mil/uL (3.80-5.20); RED CELL DISTRIBUTION WIDTH 15.2 % (11.5-14.5); WHITE BLOOD COUNT 7.3 K/uL (4.8-10.8)
[2018-11-19] MEDS ORDERED: Simethicone 80 mg Chewtab PO ONE (08:15)
[2018-11-19] MEDS: Vancomycin 1 gm/NS 200 ml 1 GM/200 ML BAG IVPB SCH ×2 (08:51→21:10)
[2018-11-19] MEDS: Lactobacillus Acidophilus 500 MU Cap PO SCH ×2 (10:07→17:45)
[2018-11-19] MEDS: Pantoprazole 40 mg EC Tab PO SCH (10:07)
[2018-11-19] MEDS: Enoxaparin 40 mg Syringe SC SCH (10:08)
[2018-11-19 10:23] VITALS: RESP 20
--- NOTE | 2018-11-19 13:42 | CP.PCM.PN ---
Subjective - Date & Time of Evaluation Date of Evaluation: 11/19/18 Time of Evaluation: 09:00 - Subjective Subjective: PGY-[address] Amando Mishra Patient is seen and examined sitting in chair. no acute events overnight. Patient states she has mild nausea and abdominal discomfort after eating breakfast she admits to having coughing. states she feels as food is disgusting. Patient can tolerate and is drinking nutritional supplement drink. Patient has some SOB and states could be associated to discomfort. patient is not off NC at time of encounter. denies fever, chills, chest pain, n/v/d/c or urinary symptoms. denies b/l lower ext swelling and/or pain. Objective - Vital Signs/Intake and Output Vital Signs (last 24 hours): Temp Pulse Resp BP Pulse Ox 98.8 F 87 20 145/87 96 11/19/18 08:00 11/19/18 08:00 11/19/18 08:00 11/19/18 10:09 11/19/18 08:00 Intake and Output: 11/19/18 11/19/18 06:59 18:59 Intake Total 1250 Balance 1250 - Medications Medications: Current Medications Acetaminophen (Tylenol 325mg Tab) 650 mg PO Q6 PRN PRN Reason: Fever >100.4 F Last Admin: 11/16/18 00:39 Dose: 650 mg Albuterol/Ipratropium (Duoneb 3 Mg/0.5 Mg (3 Ml) Ud) 3 ml INH RQ4 PRN PRN Reason: Shortness of Breath Last Admin: 11/18/18 19:59 Dose: 3 ml Amlodipine Besylate (Norvasc) 10 mg PO DAILY [facility] Last Admin: 11/19/18 10:10 Dose: 10 mg Docusate Sodium (Colace) 100 mg PO TID [facility] Last Admin: 11/19/18 10:07 Dose: 100 mg Enoxaparin Sodium (Lovenox) 40 mg SC DAILY [facility] Last Admin: 11/19/18 10:08 Dose: 40 mg Furosemide (Lasix) 40 mg PO DAILY [facility] Last Admin: 11/19/18 10:09 Dose: 40 mg Guaifenesin/Dextromethorphan (Robitussin Dm) 10 ml PO Q4H PRN PRN Reason: Cough and congestion Last Admin: 11/19/18 02:18 Dose: 10 ml Azithromycin 500 mg/ Sodium (Chloride) 250 mls @ 250 mls/hr IVPB Q24H VIN; Protocol Last Admin: 11/18/18 17:30 Dose: 250 mls/hr Piperacillin Sod/Tazobactam (Sod 3.375 gm/ Sodium Chloride) 100 mls @ 200 mls/hr IVPB Q6H VIN; Protocol Last Admin: 11/19/18 08:40 Dose: 200 mls/hr Vancomycin/Sodium Chloride (Vancomycin 1 Gm/Ns 200 Ml) 1 gm in 200 mls @ 133.333 mls/hr IVPB Q12H [facility]IN; Protocol Stop: 11/23/18 09:01 Last Admin: 11/19/18 08:51 Dose: 133.333 mls/hr Lactobacillus Acidophilus (Bacid Acidophilus) 1 cap PO BID [facility] Last Admin: 11/19/18 10:07 Dose: 1 cap Losartan Potassium (Cozaar) 100 mg PO HS [facility] Last Admin: 11/18/18 21:00 Dose: 100 mg Nicotine (Nicoderm Cq) 1 patch TD DAILY [facility] Last Admin: 11/19/18 10:07 Dose: 1 patch Pantoprazole Sodium (Protonix Ec Tab) 40 mg PO DAILY [facility] Last Admin: 11/19/18 10:07 Dose: 40 mg - Labs Labs: 11/19/18 07:42 11/19/18 07:42 PT 14.6 SECONDS (9.7-12.2) H 11/15/18 06:41 INR 1.3 11/15/18 06:41 APTT 32 SECONDS (21-34) 11/15/18 06:41 - Constitutional Appears: Well, Non-toxic, No Acute Distress - Head Exam Head Exam: ATRAUMATIC, NORMAL INSPECTION, NORMOCEPHALIC - Eye Exam Eye Exam: EOMI, Normal appearance - ENT Exam ENT Exam: Mucous Membranes Moist, Normal Exam - Neck Exam Neck Exam: Full ROM - Respiratory Exam Respiratory Exam: Clear to Ausculation Bilateral, NORMAL BREATHING PATTERN. absent: Accessory Muscle Use, Rales, Rhonchi, Wheezes, Respiratory Distress - Cardiovascular Exam Cardiovascular Exam: REGULAR RHYTHM, +S1, +S2 - GI/Abdominal Exam GI & Abdominal Exam: Distended, Soft, Normal Bowel Sounds. absent: Tenderness - Extremities Exam Extremities Exam: Full ROM, Normal Inspection - Back Exam Back Exam: Full ROM, NORMAL INSPECTION - Neurological Exam Neurological Exam: Alert, Awake, Normal Gait, Oriented x3 - Psychiatric Exam Psychiatric exam: Normal Affect, Normal Mood - Skin Skin Exam: Dry, Normal Color, Warm Assessment and Plan - Assessment and Plan (Free Text) Plan: Multifocal Healthcare Acquired Pneumonia - Patient off isolation precautions - tachycardia at 96 on admission, leukocytosis of 12.1 - vitals today wnl, no leukocytosis - CXR, chest CT: multifocal B/L PNA - ABG: lactate 0.5, Procalcitonin 0.30 -> Sepsis unlikely - HIV and Influenza neg - Mycoplasma, legionella, strep pneumo Ag all negative - PPD (placed 11/14): neg at 48hrs and 72hrs. Quantiferon Gold indeterminate - sputum AFB cxs x3 - negative - Sputum Cx (11/14): normal oral grayson - Blood Cx (11/14): neg at 3 days - will follow up for 5 days results on 11/20 - if bcx is negative, then we will arrange for patient to continue medication PO and will be d/c home - Urine Cx (11/14): contaminated. f/u repeat Urine Cx - no growth continue O2 via NC @ 3L ID consulted - Dr Camacho - f/u recs Pulm consulted - Dr Reeves - f/u recs Meds: - Vancomycin 1gm IVPB q12 - Vanc trough - 15.4 - Vanc trough 11/20 at 8:30 am - Zosyn 3.375gm IVPB q6 - Azithro 500mg IVPB daily - Acetaminophen 650mg po q6 prn for fevers - Robitussin DM po q4 prn for cough r/o PE recent travel, obese, smoking, HTN, - d-dimer 363 - CTA (11/14): no evidence of PE - LE Doppler (11/14): neg for DVT Hypertension with Nephropathy - Amlodipine 10mg po daily - Furosemide 40mg po daily - Losartan 100mg po HS - monitor vitals Nicotine use - Nicotine 14mg/day patch 1 patch TD daily PUD - Protonix 40mg po qd Abdominal discomfort 2/2 to gas pain simethicone x1 dose PPx - DVT: Lovenox 40mg sc daily, SCDs - GI: Protonix 40mg po daily, Bacid, colace - Diet: HHD - tylenol Q6 PRN DISPO: Will follow tomorrow's blood culture. If negative x 5 days, patient can be d/c home with PO abx. will follow up with ID on recs for po abx. Plan discussed with Dr Tad Rod, PGY-1
[2018-11-19] MEDS: Azithromycin 500 MG in Sodium Chloride 0.9% 250 ML IVPB SCH (15:39)
[2018-11-20 00:22] VITALS: O2SAT 97
[2018-11-20] MEDS: Piperacillin/Tazobact 3.375 GM in Sodium Chloride 100 ML IVPB SCH ×3 (01:35→13:42)
[2018-11-20 07:26] LABS: BASO % 0.3 % (0.0-2.0); EOS # 0.3 K/uL (0.0-0.7); HEMOGLOBIN 10.9 g/dL (11.0-16.0); LYMPH # 1.2 K/uL (1.0-4.3); LYMPH % 14.9 % (20.0-40.0); MEAN CELL VOLUME 83.1 fL (81.0-99.0); MEAN CORPUSCULAR HEMOGLOBIN 27.7 pg (27.0-31.0); MEAN CORPUSCULAR HGB CONC 33.4 g/dL (33.0-37.0); MEAN PLATELET VOLUME 7.8 fL (7.2-11.7); MONO # 0.5 K/uL (0.0-0.8); NEUT # 5.9 K/uL (1.8-7.0); NEUT % 74.8 % (50.0-75.0); RBC 3.93 Mil/uL (3.80-5.20); RED CELL DISTRIBUTION WIDTH 15.1 % (11.5-14.5); WHITE BLOOD COUNT 7.9 K/uL (4.8-10.8)
[2018-11-20 07:54] LABS: ALB/GLOB RATIO 1.2 (1.0-2.1); ALBUMIN 3.7 g/dL (3.5-5.0); ALT/SGPT 66 U/L (9-52); AST/SGOT 61 U/L (14-36); BLOOD UREA NITROGEN 12 mg/dL (7-17); CALCIUM 8.9 mg/dl (8.6-10.4); GFR NON-AFRICAN AMERICAN > 60
[2018-11-20 08:26] VITALS: BP 138/88; PULSE 72; TEMP 98
[2018-11-20] MEDS ORDERED: Potassium Chloride 20 mEq ER Tab PO ONE (08:53)
[2018-11-20] MEDS: guaiFENesin DM 200 mg-20 mg/10 ml UD PO PRN (10:31)
[2018-11-20] MEDS: Pantoprazole 40 mg EC Tab PO SCH (10:31)
[2018-11-20] MEDS: Enoxaparin 40 mg Syringe SC SCH (10:33)
[2018-11-20] MEDS: Lactobacillus Acidophilus 500 MU Cap PO SCH (10:35)
[2018-11-20] MEDS ORDERED: Potassium Chloride 20 mEq/15 ml LIQ UD PO ONE (10:45)
--- NOTE | 2018-11-20 11:06 | CP.PCM.PN ---
Subjective - Date & Time of Evaluation Date of Evaluation: 11/20/18 Time of Evaluation: 10:45 - Subjective Subjective: Hospitalist Progress Note Patient was seen and examined at 10:45 AM 368 B Currently upon FULL ROS: She did not cough this morning NO dyspnea/wheezing NO chest pain/palpitations NO abdominal pain: no epigastric pain (she has this chronically off and on) NO n/v/d/c: she is moving her bowels normally NO other complaints upon FULL ROS HEENT, Cardio, Resp, GI, Ext, CN II through are grossly intact Patient is stable for discharge and ready for further management as outpatient: Sputum AFB negative x 3, Blood Culture negative at 5 days, NO recent fevers, Vitals are stable Resident Dr. Thee Rod spoke with ID Dr. Camacho and Augmentin 875/125 mg, 1 tablet by mouth 2x/day for 10 days is recommended The following instructions were explained to patient and a copy will need to be provide to her upon discharge: 1). Schedule follow up with the [facility] located on Floor [address] of [facility] located at [address] [place] [address] in [place], [place] by calling [phone] for an appointment that should take place in the next 10 to 14 days. You will need to have your lung volumes measured to help to determine if you have Chronic Obstructive Lung Disease due to your history of smoking 2). Please have the following prescriptions filled at your pharmacy on your way home from the hospital: Amlodipine 10 mg, 1 tablet by mouth 1x/day (2 PM), #30 Furosemide 40 mg, 1 table by mouth 1x/day (8 AM), #30 Losartan 100 mg, 1 tablet by mouth 1x/day (8 PM), #30 Omeprazole 40 mg, 1 tablet by mouth 1x/day (8 AM), #30 Augmentin 875/125 mg, 1 tablet by mouth 2/day (8 AM and 8 PM), #30 Albuterol 90 mcg/actuation, 2 inhalations by mouth every 6 hours ONLY NEEDED for shortness of breath, #1 3). You must stop smoking. Please call [phone] for resources to help you stop smoking. 4). Please take care and be well Amando Mishra D.O. The following is a summary of the plan, results, and treatment provided during hospitalization: Multifocal Healthcare Acquired Pneumonia - Patient off isolation precautions - tachycardia at 96 on admission, leukocytosis of 12.1 - vitals today wnl, no leukocytosis - CXR, chest CT: multifocal B/L PNA - ABG: lactate 0.5, Procalcitonin 0.30 -> Sepsis unlikely - HIV and Influenza neg - Mycoplasma, legionella, strep pneumo Ag all negative - PPD (placed 11/14): neg at 48hrs and 72hrs. Quantiferon Gold indeterminate - sputum AFB cxs x3 - negative - Sputum Cx (11/14): normal oral grayson - Blood Cx (11/14): neg at 3 days - will follow up for 5 days results on 11/20 - if bcx is negative, then we will arrange for patient to continue medication PO and will be d/c home - Urine Cx (11/14): contaminated. f/u repeat Urine Cx - no growth continue O2 via NC @ 3L ID consulted - Dr Camacho - f/u recs Pulm consulted - Dr Reeves - f/u recs Meds: - Vancomycin 1gm IVPB q12 - Vanc trough - 15.4 - Vanc trough 11/20 at 8:30 am - Zosyn 3.375gm IVPB q6 - Azithro 500mg IVPB daily - Acetaminophen 650mg po q6 prn for fevers - Robitussin DM po q4 prn for cough r/o PE recent travel, obese, smoking, HTN, - d-dimer 363 - CTA (11/14): no evidence of PE - LE Doppler (11/14): neg for DVT Hypertension with Nephropathy - Amlodipine 10mg po daily - Furosemide 40mg po daily - Losartan 100mg po HS - monitor vitals Nicotine use - Nicotine 14mg/day patch 1 patch TD daily PUD - Protonix 40mg po qd Abdominal discomfort 2/2 to gas pain simethicone x1 dose PPx - DVT: Lovenox 40mg sc daily, SCDs - GI: Protonix 40mg po daily, Bacid, colace - Diet: HHD - tylenol Q6 PRN Amando Mishra D.O. Objective - Vital Signs/Intake and Output Vital Signs (last 24 hours): Temp Pulse Resp BP Pulse Ox 98.0 F 72 20 138/88 97 11/20/18 08:25 11/20/18 08:25 11/20/18 08:25 11/20/18 10:32 11/20/18 08:25 Intake and Output: 11/20/18 11/20/18 06:59 18:59 Intake Total 1390 Balance 1390 - Medications Medications: Current Medications Acetaminophen (Tylenol 325mg Tab) 650 mg PO Q6 PRN PRN Reason: Fever >100.4 F Last Admin: 11/16/18 00:39 Dose: 650 mg Albuterol/Ipratropium (Duoneb 3 Mg/0.5 Mg (3 Ml) Ud) 3 ml INH RQ4 PRN PRN Reason: Shortness of Breath Last Admin: 11/18/18 19:59 Dose: 3 ml Amlodipine Besylate (Norvasc) 10 mg PO DAILY [facility] Last Admin: 11/20/18 10:31 Dose: 10 mg Docusate Sodium (Colace) 100 mg PO TID [facility] Last Admin: 11/20/18 10:31 Dose: 100 mg Enoxaparin Sodium (Lovenox) 40 mg SC DAILY [facility] Last Admin: 11/20/18 10:33 Dose: 40 mg Furosemide (Lasix) 40 mg PO DAILY [facility] Last Admin: 11/20/18 10:32 Dose: 40 mg Guaifenesin/Dextromethorphan (Robitussin Dm) 10 ml PO Q4H PRN PRN Reason: Cough and congestion Last Admin: 11/20/18 10:31 Dose: 10 ml Azithromycin 500 mg/ Sodium (Chloride) 250 mls @ 250 mls/hr IVPB Q24H [facility]; Protocol Last Admin: 11/19/18 15:39 Dose: 250 mls/hr Piperacillin Sod/Tazobactam (Sod 3.375 gm/ Sodium Chloride) 100 mls @ 200 mls/hr IVPB Q6H [facility]; Protocol Last Admin: 11/20/18 08:29 Dose: 200 mls/hr Vancomycin/Sodium Chloride (Vancomycin 1 Gm/Ns 200 Ml) 1 gm in 200 mls @ 133.333 mls/hr IVPB Q12H [facility]; Protocol Stop: 11/23/18 09:01 Last Admin: 11/19/18 21:10 Dose: 133.333 mls/hr Lactobacillus Acidophilus (Bacid Acidophilus) 1 cap PO BID [facility] Last Admin: 11/20/18 10:35 Dose: 1 cap Losartan Potassium (Cozaar) 100 mg PO HS [facility] Last Admin: 11/19/18 21:10 Dose: 100 mg Nicotine (Nicoderm Cq) 1 patch TD DAILY [facility] Last Admin: 11/20/18 10:35 Dose: 1 patch Pantoprazole Sodium (Protonix Ec Tab) 40 mg PO DAILY [facility] Last Admin: 11/20/18 10:31 Dose: 40 mg - Labs Labs: 11/20/18 07:14 11/20/18 07:14 PT 14.6 SECONDS (9.7-12.2) H 11/15/18 06:41 INR 1.3 11/15/18 06:41 APTT 32 SECONDS (21-34) 11/15/18 06:41
[2018-11-20] MEDS: Vancomycin 1 gm/NS 200 ml 1 GM/200 ML BAG IVPB SCH (11:24)
--- NOTE | 2018-11-20 11:58 | CP.PCM.DIS ---
Provider - Provider Date of Admission: 11/14/18 14:34 Attending physician: Amando Mishra MD Consults: 11/14/18 16:31 Pulmonology Consult Routine Comment: Consulting Provider: Kalia Reeves Consulting Physician: Kalia Reeves Reason for Consult: right upper pneumonia 11/16/18 13:29 Infectious Disease Consult Routine Comment: Consulting Provider: Emerald Camacho Consulting Physician: Emerald Camacho Reason for Consult: multifocal PNA Time Spent in preparation of Discharge (in minutes): 180 Diagnosis - Discharge Diagnosis (1) Pneumonia Status: Acute (2) Hypertension Status: Acute Hospital Course - Lab Results Lab Results: Micro Results 11/14/18 14:52 Blood-Venous Blood Culture - Final NO GROWTH AFTER 5 DAYS 11/14/18 14:52 Blood-Venous Gram Stain - Final TEST NOT PERFORMED 11/14/18 14:00 Blood-Venous Blood Culture - Final NO GROWTH AFTER 5 DAYS 11/14/18 14:00 Blood-Venous Gram Stain - Final TEST NOT PERFORMED 11/17/18 14:03 Other: Please Indicate Mycobacterial Culture - Preliminary 11/17/18 14:03 Urine,Clean Catch Urine Culture - Final No Growth (<1,000 CFU/ML) 11/16/18 06:43 Other: Please Indicate Mycobacterial Culture - Preliminary 11/14/18 22:35 Sputum Gram Stain - Final 11/14/18 22:35 Sputum Sputum Culture - Final NORMAL ORAL STEFANIE 11/14/18 22:35 Other: Please Indicate Mycobacterial Culture - Preliminary 11/15/18 07:17 Other: Please Indicate Mycobacterial Culture - Preliminary 11/14/18 12:40 Urine Urine Culture - Final MULTIPLE SPECIES. SUGGEST REPEAT SPECIMEN. Most Recent Lab Values WBC 7.9 K/uL (4.8-10.8) 11/20/18 07:14 RBC 3.93 Mil/uL (3.80-5.20) 11/20/18 07:14 Hgb 10.9 g/dL (11.0-16.0) L 11/20/18 07:14 Hct 32.7 % (34.0-47.0) L 11/20/18 07:14 MCV 83.1 fL (81.0-99.0) 11/20/18 07:14 MCH 27.7 pg (27.0-31.0) 11/20/18 07:14 MCHC 33.4 g/dL (33.0-37.0) 11/20/18 07:14 RDW 15.1 % (11.5-14.5) H 11/20/18 07:14 Plt Count 482 K/uL (130-400) H 11/20/18 07:14 MPV 7.8 fL (7.2-11.7) 11/20/18 07:14 Neut % (Auto) 74.8 % (50.0-75.0) 11/20/18 07:14 Lymph % (Auto) 14.9 % (20.0-40.0) L 11/20/18 07:14 Hardy % (Auto) 6.0 % (0.0-10.0) 11/20/18 07:14 Eos % (Auto) 4.0 % (0.0-4.0) 11/20/18 07:14 Baso % (Auto) 0.3 % (0.0-2.0) 11/20/18 07:14 Neut # (Auto) 5.9 K/uL (1.8-7.0) 11/20/18 07:14 Lymph # (Auto) 1.2 K/uL (1.0-4.3) 11/20/18 07:14 Hardy # (Auto) 0.5 K/uL (0.0-0.8) 11/20/18 07:14 Eos # (Auto) 0.3 K/uL (0.0-0.7) 11/20/18 07:14 Baso # (Auto) 0.0 K/uL (0.0-0.2) 11/20/18 07:14 Neutrophils % (Manual) 85 % (50-75) H 11/14/18 12:40 Band Neutrophils % 3 % (0-2) H 11/14/18 12:40 Lymphocytes % (Manual) 7 % (20-40) L 11/14/18 12:40 Monocytes % (Manual) 5 % (0-10) 11/14/18 12:40 Platelet Estimate Normal (NORMAL) 11/14/18 12:40 Polychromasia Slight 11/14/18 12:40 Hypochromasia (manual) Slight 11/14/18 12:40 Anisocytosis (manual) Slight 11/14/18 12:40 PT 14.6 SECONDS (9.7-12.2) H 11/15/18 06:41 INR 1.3 11/15/18 06:41 APTT 32 SECONDS (21-34) 11/15/18 06:41 D-Dimer, Quantitative 363 ng/mlDDU (0-243) H 11/14/18 19:25 Puncture Site Rba 11/14/18 17:12 pCO2 39 mm/Hg (35-45) 11/14/18 17:12 pO2 49 mm/Hg (80-100) L 11/14/18 17:12 HCO3 28.2 mmol/L (21-28) H 11/14/18 17:12 ABG pH 7.47 (7.35-7.45) H 11/14/18 17:12 ABG Total CO2 29.6 mmol/L (22-28) H 11/14/18 17:12 ABG O2 Saturation 91.1 % (95-98) L 11/14/18 17:12 ABG Base Excess 4.5 mmol/L (-2.0-3.0) H 11/14/18 17:12 Shaka Test Pos 11/14/18 17:12 ABG Potassium 3.1 mmol/L (3.6-5.2) L 11/14/18 17:12 A-a O2 Difference 52.0 mm/Hg 11/14/18 17:12 Respiratory Index 1.1 11/14/18 17:12 Sodium 137.0 mmol/l (132-148) 11/14/18 17:12 Chloride 105.0 mmol/L (98-107) 11/14/18 17:12 Glucose 96 mg/dl (65-105) 11/14/18 17:12 Lactate 0.5 mmol/L (0.7-2.1) L 11/14/18 17:12 Liter Flow 0 11/14/18 17:12 FiO2 21.0 % 11/14/18 17:12 Sodium 139 mmol/L (132-148) 11/20/18 07:14 Potassium 3.3 mmol/L (3.6-5.2) L 11/20/18 07:14 Chloride 99 mmol/L (98-107) 11/20/18 07:14 Carbon Dioxide 33 mmol/L (22-30) H 11/20/18 07:14 Anion Gap 10 (10-20) 11/20/18 07:14 BUN 12 mg/dL (7-17) 11/20/18 07:14 Creatinine 0.9 mg/dL (0.7-1.2) 11/20/18 07:14 Est GFR ( Amer) > 60 11/20/18 07:14 Est GFR (Non-Af Amer) > 60 11/20/18 07:14 POC Glucose (mg/dL) 94 mg/dL (65-110) 11/20/18 11:46 Random Glucose 100 mg/dL (65-105) 11/20/18 07:14 Hemoglobin A1c 6.0 % (4.2-6.5) 11/14/18 19:25 Calcium 8.9 mg/dl (8.6-10.4) 11/20/18 07:14 Phosphorus 4.0 mg/dL (2.5-4.5) 11/20/18 07:14 Magnesium 1.9 mg/dL (1.6-2.3) 11/20/18 07:14 Total Bilirubin 0.6 mg/dL (0.2-1.3) 11/20/18 07:14 AST 61 U/L (14-36) H D 11/20/18 07:14 ALT 66 U/L (9-52) H D 11/20/18 07:14 Alkaline Phosphatase 241 U/L (38-126) H D 11/20/18 07:14 Total Protein 7.0 g/dL (6.3-8.3) 11/20/18 07:14 Albumin 3.7 g/dL (3.5-5.0) 11/20/18 07:14 Globulin 3.2 gm/dL (2.2-3.9) 11/20/18 07:14 Albumin/Globulin Ratio 1.2 (1.0-2.1) 11/20/18 07:14 Triglycerides 58 mg/dL (0-149) 11/14/18 19:25 Cholesterol 172 mg/dL (0-199) 11/14/18 19:25 LDL Cholesterol Direct 98 mg/dL (0-129) 11/14/18 19:25 HDL Cholesterol 52 mg/dL (30-70) 11/14/18 19:25 Procalcitonin 0.30 NG/ML (0.19-0.49) 11/14/18 19:25 Free T4 1.18 ng/dL (0.78-2.19) 11/16/18 07:53 TSH 3rd Generation 0.40 mIU/L (0.46-4.68) L 11/14/18 19:25 Arterial Blood Potassium 3.1 mmol/L (3.6-5.2) L 11/14/18 17:12 Urine Color Yellow (YELLOW) 11/14/18 12:40 Urine Clarity Clear (Clear) 11/14/18 12:40 Urine pH 7.0 (5.0-8.0) 11/14/18 12:40 Ur Specific Sanborn 1.014 (1.003-1.030) 11/14/18 12:40 Urine Protein 2+ mg/dL (NEGATIVE) H 11/14/18 12:40 Urine Glucose (UA) 1+ mg/dL (Normal) 11/14/18 12:40 Urine Ketones Negative mg/dL (NEGATIVE) 11/14/18 12:40 Urine Blood Negative (NEGATIVE) 11/14/18 12:40 Urine Nitrate Negative (NEGATIVE) 11/14/18 12:40 Urine Bilirubin Negative (NEGATIVE) 11/14/18 12:40 Urine Urobilinogen Normal mg/dL (0.2-1.0) 11/14/18 12:40 Ur Leukocyte Esterase Neg Luna/uL (Negative) 11/14/18 12:40 Urine WBC (Auto) 2 /hpf (0-5) 11/14/18 12:40 Urine RBC (Auto) < 1 /hpf (0-3) 11/14/18 12:40 Ur Squamous Epith Cells 3 /hpf (0-5) 11/14/18 12:40 Hyaline Casts 0-2 /lpf (0-2) 11/14/18 12:40 Vancomycin Trough 19.4 ug/mL (5.0-10.0) H 11/20/18 07:53 Hepatitis A IgM Ab Negative (NEGATIVE) 11/16/18 07:53 Hep Bs Antigen Negative (NEGATIVE) 11/16/18 07:53 Hep Bs Antibody Negative (NEGATIVE) 11/16/18 07:53 Hep B Core IgM Ab Negative (NEGATIVE) 11/16/18 07:53 Hepatitis C Antibody Negative (NEGATIVE) 11/16/18 07:53 HIV 1&2 Antibody Screen Negative (NEGATIVE) 11/14/18 19:25 Influenza Typ A,B (EIA) Negative for flu a/b (NEGATIVE) 11/14/18 12:40 H.influenzae Type B Ag Not required (NEGATIVE) 11/14/18 16:31 Ur L.pneumophila Ag Negative (NEGATIVE) 11/14/18 07:17 Mycoplasma pneumon IgM Negative (NEGATIVE) 11/14/18 19:25 N.meningitidis ACY/W135 Not required (NEGATIVE) 11/14/18 16:31 N.meningi B/E.coli K1 Ag Not required (NEGATIVE) 11/14/18 16:31 Group B Strep Antigen Not required (NEGATIVE) 11/14/18 16:31 S. pneumoniae Antigen Negative (NEGATIVE) 11/14/18 16:31 TB Test (QFT) Nil 0.14 IU/mL 11/14/18 19:25 TB Test Mitogen - Nil 0.29 IU/mL 11/14/18 19:25 TB Test TB - Nil 0.00 IU/mL 11/14/18 19:25 TB Test (T-Spot) Indeterminate (Negative) H 11/14/18 19:25 - Hospital Course Hospital Course: On admission: Patient is a 63 year old female with a PMHx significant for HTN, hypertensive kidney disease, PUD, chronic bronchitis who presents to ED with complaints of 3 days of malaise, fevers, cough with blood tinged sputum. Patient recently traveled from [place], arriving 11/11, and immediately felt ill s/p flight. Patient reports excessive sneezing, chills, fevers at home of 101. Pt reports for past 2 days she has had generalized malaise, increased weakness, and fatigue; pt reports cough that quickly progressed productive of brown, blood tinged sputum. Pt denies recent weight loss, sweats, chest pain, SOB, nausea, dysuria; pt admits to being recently treated for a "kidney infection" in [place] with 10 days of Azithromycin and Keflex which she took to completion. Pt also reports episodes of bronchitis occur every 1-2 yrs, treated with Abx. On hospitalization: Patient admitted for evaluation and treatment of suspected PNA vs PE vs TB infection. tachycardic and leukocytosis at 12,1 on admission. CXR, chest CT: multifocal B/L PNA. sputum AFB cxs x3 negative, blood negative after 5 days, Urine cx negative. Mycoplasma, legionella, strep pneumo Ag all negative. Patient placed on isolation precautions for risk of active TB infection. PPD (placed 11/14): neg at 48hrs and 72hrs. Quantiferon Gold indeterminateHIV and Influenza neg. ABG: lactate 0.5, Procalcitonin 0.30. Vancomycin 1gm IVPB q12H, Zosyn 3.375gm IVPB q6, Azithro 500mg IVPB daily, Acetaminophen 650mg po q6 prn for fevers, Robitussin DM po q4 prn for cough. ID and pulm on board for this case. the following tests were done to r/o PE: d-dimer 363. CTA (11/14): no evidence of PE. LE Doppler (11/14): neg for DVT. the following meds were given for HTN Amlodipine 10mg po daily, Furosemide 40mg po daily, Losartan 100mg po HS. Nicotine patch provided. prophylaxis with Protonix 40mg po qd, Lovenox 40mg sc daily, SCDs. On discharge: The following instructions were explained to patient and a copy will need to be provide to her upon discharge: 1). Schedule follow up with the [facility] located on Floor B of [facility] located at [address] [place] [address] in [place], [place] by calling [phone] for an appointment that should take place in the next 10 to 14 days. You will need to have your lung volumes measured to help to determine if you have Chronic Obstructive Lung Disease due to your history of smoking 2). Please have the following prescriptions filled at your pharmacy on your way home from the hospital: Amlodipine 10 mg, 1 tablet by mouth 1x/day (2 PM), #30 Furosemide 40 mg, 1 table by mouth 1x/day (8 AM), #30 Losartan 100 mg, 1 tablet by mouth 1x/day (8 PM), #30 Omeprazole 40 mg, 1 tablet by mouth 1x/day (8 AM), #30 Augmentin 875/125 mg, 1 tablet by mouth 2/day (8 AM and 8 PM), #30 Albuterol 90 mcg/actuation, 2 inhalations by mouth every 6 hours ONLY NEEDED for shortness of breath, #1 3). You must stop smoking. Please call [phone] for resources to help you stop smoking. 4). Please take care and be well This is a short summary of patient's hospitalization course. For more information, please refer to patient's EMR. - Date & Time of H&P Date of H&P: 11/14/18 Time of H&P: 16:45 Discharge Exam - Head Exam Head Exam: ATRAUMATIC, NORMAL INSPECTION, NORMOCEPHALIC - Eye Exam Eye Exam: EOMI, Normal appearance - ENT Exam ENT Exam: Mucous Membranes Moist - Neck Exam Neck exam: Full Rom - Respiratory Exam Respiratory Exam: Clear to PA & Lateral, NORMAL BREATHING PATTERN, UNREMARKABLE. absent: Rales, Rhonchi, Wheezes, Respiratory Distress - Cardiovascular Exam Cardiovascular Exam: REGULAR RHYTHM, +S1, +S2 - GI/Abdominal Exam GI & Abdominal Exam: Normal Bowel Sounds, Soft, Unremarkable. absent: Tenderness - Extremities Exam Extremities exam: full ROM, normal inspection - Back Exam Back exam: NORMAL INSPECTION - Neurological Exam Neurological exam: Alert, Oriented x3 - Psychiatric Exam Psychiatric exam: Normal Affect, Normal Mood - Skin Skin Exam: Dry, Intact, Normal Color, Warm Discharge Plan - Discharge Medications Prescriptions: Albuterol HFA [Ventolin HFA 90 mcg/actuation (8 g)] 2 puff IH Q6H PRN #1 inhaler PRN Reason: Shortness Of Breath amLODIPine [Norvasc] 10 mg PO DAILY #30 tab Amoxicillin/Clavulanate [Augmentin 875 MG-125 MG] 1 tab PO BID 10 Days #20 tab Furosemide [Lasix] 40 mg PO DAILY #30 tab Losartan [Cozaar] 100 mg PO HS #30 tab Omeprazole 40 mg PO DAILY #30 capsule.dr - Follow Up Plan Condition: FAIR Disposition: HOME/ ROUTINE Instructions: Pneumonia in Adults, Albuterol, Amlodipine, Amoxicillin, Furosemide, Losartan, Pantoprazole Additional Instructions: 1). Tash un seguimiento del programa con el [facility] ubicado en el piso B del [facility] ubicado en [address] en [place], [place] llamando al [phone] para cindy gracy que debe realizarse en los prximos 10 a 14 javier. Deber medir stacey volmenes pulmonares para ayudar a determinar si tiene enfermedad pulmonar obstructiva crnica debido a slade historial de tabaquismo. 2). Por favor, llene las siguientes recetas en slade farmacia de jhon a casa desde el hospital: Amlodipina 10 mg, 1 tableta por va oral 1x / da (2 PM), # 30 Furosemida 40 mg, 1 boykin por va oral 1x / da (8 AM), # 30 Losartan 100 mg, 1 tableta por va oral 1x / da (8 PM), # 30 Omeprazol 40 mg, 1 tableta por va oral 1x / da (8 AM), # 30 Augmentin 875/125 mg, 1 tableta por va oral 2 / da (8 AM y 8 PM), # 20 Albuterol 90 mcg / actuacin, 2 inhalaciones por va oral cada 6 horas SOLAMENTE SENTHIL SEA NECESARIO para la falta de aliento, # 1 3). Debes dejar de fumar. Llame al [phone] para obtener recursos que lo ayuden a dejar de fumar. 4). Por favor cuidate y que medrano belinda 1). Schedule follow up with the [facility] located on Floor B of [facility] located at [address] [place] [address] in [place], [place] by calling [phone] for an appointment that should take place in the next 10 to 14 days. You will need to have your lung volumes measured to help to determine if you have Chronic Obstructive Lung Disease due to your history of smoking 2). Please have the following prescriptions filled at your pharmacy on your way home from the hospital: Amlodipine 10 mg, 1 tablet by mouth 1x/day (2 PM), #30 Furosemide 40 mg, 1 table by mouth 1x/day (8 AM), #30 Losartan 100 mg, 1 tablet by mouth 1x/day (8 PM), #30 Omeprazole 40 mg, 1 tablet by mouth 1x/day (8 AM), #30 Augmentin 875/125 mg, 1 tablet by mouth 2/day (8 AM and 8 PM), #20 Albuterol 90 mcg/actuation, 2 inhalations by mouth every 6 hours ONLY NEEDED for shortness of breath, #1 3). You must stop smoking. Please call [phone] for resources to help you stop smoking. 4). Please take care and be well Referrals: [facility] at [facility] [Outside]
[2018-11-20] MEDS ORDERED: Influenza Vaccine 60 MCG/0.5 ML SYR (3 yr & up) IM ONE (15:41)
== END 2018-11-20 18:23 | disposition home or self-care (01) | DRG 139 ==
LOC: C.ER 11:17 → C.9E 14:34 → C.3T 16:08
PROVIDERS: ADMIT Family Medicine; ATTEND Family Medicine
DX: J18.8 Other pneumonia, unspecified organism (principal); R04.2 Hemoptysis; K27.9 Peptic ulcer, site unspecified, unspecified as acute or chronic, without hemorrhage or perforation; I12.9 Hypertensive chronic kidney disease with stage 1 through stage 4 chronic kidney disease, or unspecified chronic kidney disease; J42 Unspecified chronic bronchitis; N18.9 Chronic kidney disease, unspecified; Y95 Nosocomial condition; H40.9 Unspecified glaucoma; Z72.0 Tobacco use